=== PATIENT | female | born 1930 | race Caucasian/White ===

== ENCOUNTER 2018-05-05 09:58 | Emergency (ER) | payer MEDICARE, OTHER ==
[2018-05-05 10:13] VITALS: BMI 36.8
[2018-05-05] MEDS ORDERED: SODIUM CHLORIDE 1,000 ML IV SCH (11:00)
--- NOTE | 2018-05-05 11:11 | PDOC ---
History of Present Illness - General Chief Complaint: Weakness Stated Complaint: Weakness Time Seen by Provider: 05/05/18 10:09 - History of Present Illness Initial Comments: 05/05/18 11:18 The patient is an 88-year-old female with a past medical history significant for CHF on digoxin, IDDM, HTN, Afib (on Xarelto) and UTI (more than a year ago) presents to the emergency department accompanied with family members complaining of generalized weakness. The patient reports shes been having several days of weakness and fatigue associated with lower extremity edema. Per her son Dr. Payan, she had blood work which was significant for elevated creatinine and he discontinued Benicar, Lasix, digoxin and gave her 2L fluids with 1 amp bicarb. Per family members, the patient drank a lot of fluids yesterday; however, she isnt voiding frequently. The family states about a week prior she was having copious nonbloody, watery diarrhea that resolved 2 days ago. The patient did have a solid non bloody bowel movement earlier today. The patient reports she woke up at 2:00 and 4:00 am today, at which time her blood sugar was reported to be 142 which is low compared to the baseline of high 200s. Denies fever chills, dizziness, lightheadedness, abdominal pain, dysuria. Medication: Crestor, Insulin, Tradjenta, Toprol, Xarelto. Allergies: Codeine PCP: Dr. Jakub Payan. Past History - Past Medical History Allergies/Adverse Reactions: Allergies Allergy/AdvReac Type Severity Reaction Status Date / Time codeine AdvReac Severe Nausea Verified 05/05/18 10:08 Home Medications: Ambulatory Orders Digoxin [Lanoxin -] 0.125 mg PO DAILY 05/05/18 Furosemide [Lasix] 20 mg PO DAILY 05/05/18 Insulin Aspart [Novolog] 12 unit SQ PRN 05/05/18 Insulin Degludec [Tresiba] 60 unit SQ AM 05/05/18 Linagliptin [Tradjenta] 5 mg PO DAILY 05/05/18 Liraglutide [Victoza -] 1.8 mg SQ DAILY@0700 05/05/18 Metoprolol Succinate [Toprol Xl] 25 mg PO DAILY 05/05/18 Olmesartan Medoxomil [Benicar] 20 mg PO DAILY 05/05/18 Rivaroxaban [Xarelto] 15 mg PO DAILY 05/05/18 Rosuvastatin Calcium [Crestor] 10 mg PO DAILY 05/05/18 Anemia: No Asthma: No Cancer: No Cardiac Disorders: Yes (a-fib) CVA: No COPD: No CHF: No Dementia: No Diabetes: Yes GI Disorders: No Disorders: No HTN: Yes Hypercholesterolemia: No Liver Disease: No Seizures: No Thyroid Disease: No - Surgical History Abdominal Surgery: No Appendectomy: No Cardiac Surgery: No Cholecystectomy: Yes (1963) Lung Surgery: No Neurologic Surgery: No - Suicide/Smoking/Psychosocial Hx Smoking History: Never smoked Have you smoked in the past 12 months: No Information on smoking cessation initiated: No Hx Alcohol Use: No Drug/Substance Use Hx: No Substance Use Type: Alcohol Hx Substance Use Treatment: No Review of Systems - Review of Systems Comments:: 05/05/18 11:22 GENERAL/CONSTITUTIONAL: No fever or chills. +weakness and fatigue. HEAD, EYES, EARS, NOSE AND THROAT: No change in vision. No ear pain or discharge. No sore throat. GASTROINTESTINAL: Denies abdominal pain. No nausea, vomiting, diarrhea or constipation. GENITOURINARY: +decreased urinary frequency. No dysuria, or change in urination. CARDIOVASCULAR: No chest pain or shortness of breath. RESPIRATORY: No cough, wheezing, or hemoptysis. MUSCULOSKELETAL: No joint or muscle swelling or pain. No neck or back pain. SKIN: +Lower extremity edema. No rash NEUROLOGIC: Denies dizziness or lightheadedness. No headache, vertigo, loss of consciousness, or change in strength/sensation. ENDOCRINE: No increased thirst. No abnormal weight change. HEMATOLOGIC/LYMPHATIC: No anemia, easy bleeding, or history of blood clots. ALLERGIC/IMMUNOLOGIC: No hives or skin allergy. *Physical Exam - Vital Signs Last Vital Signs Temp Pulse Resp BP Pulse Ox 98.3 F 97 H 16 180/80 H 99 05/05/18 10:10 05/05/18 10:10 05/05/18 10:10 05/05/18 10:10 05/05/18 10:10 - Physical Exam Comments: 05/05/18 11:24 GENERAL: Awake, alert, and fully oriented, in no acute distress EYES: PERRLA, EOMI, sclera anicteric, conjunctiva clear ENT: +dry mucous membranes. oropharynx clear without exudates. NECK: Normal ROM, supple, no lymphadenopathy, JVD, or masses LUNGS: Breath sounds equal, clear to auscultation bilaterally. No wheezes, and no crackles HEART: irregularly irregular, normal rate, normal S1 and S2, no murmurs, rubs or gallops ABDOMEN: Soft, nontender. No guarding, no rebound. No masses EXTREMITIES: +1+ pitting edema,symmetric to the knees. Normal range of motion. No tenderness. BACK: No midline spinal tenderness in cervical/thoracic/lumbar region NEUROLOGICAL: Normal speech, cranial nerves intact, equal strength and sensation b/l SKIN: Warm, Dry, normal turgor, no rashes or lesions noted. Moderate Sedation - Procedure Monitoring Vital Signs: Procedure Monitoring Vital Signs Temperature 98.3 F 05/05/18 10:10 Pulse Rate 97 H 05/05/18 10:10 Respiratory Rate 16 05/05/18 10:10 Blood Pressure 180/80 H 05/05/18 10:10 O2 Sat by Pulse Oximetry (%) 99 05/05/18 10:10 Heart Score/ECG Review #1 05/05/18 11:47 Twelve-lead EKG was performed and reviewed by me. Atrial fibrillation, rate 85. Normal axis. No ST elevations. T wave inversions laterally and 1, aVL and V4 to V6. ED Treatment Course - LABORATORY CBC & Chemistry Diagram: 05/05/18 10:56 05/05/18 10:56 - RADIOLOGY Radiology Studies Ordered: Category Date Time Status CHEST X-RAY PORTABLE* [RAD] Stat Radiology 05/05/18 10:27 Taken Medical Decision Making - Medical Decision Making 05/05/18 11:51 88yo F hx CHF, HTN, AF on AC presents to the ED with generalized weakness and elevated creatinine on outpt labs. DDx includes infection vs metabolic vs ischemic vs toxic pathology. 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 Samaniego, recommends telemetry admission Dr. Samarneh also to see pt Dr. Payan has been updated Case discussed with Dr. Crawford, pt accepted for admission. Case discussed in detail with admitting physician including history, physical exam and ancillary studies. Admitting physician has assumed care for the patient, will follow all pending diagnostics and will complete the evaluation and treatment. *DC/Admit/Observation/Transfer Diagnosis at time of Disposition: HODAN (acute kidney injury), Dehydration, Generalized weakness Diagnosis at time of Disposition: (Ruled Out): Generalized weakness following poliomyelitis - Discharge Dispostion Condition at time of disposition: Stable Decision to Admit order: Yes Decision to Admit order Date/Time: Decision to Admit Order Category Date Time Status Decision to Admit to Hospital Routine Admission 05/05/18 10:58 Active - Referrals Referrals: Torres Payan MD [Primary Care Provider] - - Patient Instructions - Post Discharge Activity - Attestations Physician Attestion: 05/05/18 12:25 I, Dr. Austin Kidd MD, attest that this document has been prepared under my direction and personally reviewed by me in its entirety. I further attest, that it accurately reflects all work, treatment, procedures and medical decision -making performed by me.
[2018-05-05 11:12] LABS: BASO % 1.1 % (0-2.0); EOS % 1.4 % (0-4.5); HEMATOCRIT 32.7 % (32.4-45.2); HEMOGLOBIN 11.4 GM/dL (10.7-15.3); LYMPH % 20.9 % (8-40); MCH 28.6 pg (25.7-33.7); MCHC 34.9 g/dl (32.0-36.0); MEAN CELL VOLUME 81.9 fl (80-96); MEAN PLT VOLUME 9.3 fl (7.5-11.1); MONO % 6.1 % (3.8-10.2); NEUT % 70.5 % (42.8-82.8); PLATELET COUNT 183 K/MM3 (134-434); RBC 3.99 M/mm3 (3.60-5.2); RDW 17.2 % (11.6-15.6); WHITE BLOOD COUNT 8.9 K/mm3 (4.0-10.0)
--- NOTE | 2018-05-05 11:30 | EKG ---
Test Reason : Blood Pressure : / mmHG Vent. Rate : 088 BPM Atrial Rate : 069 BPM P-R Int : 000 ms QRS Dur : 088 ms QT Int : 352 ms P-R-T Axes : 000 -05 187 degrees QTc Int : 425 ms POOR DATA QUALITY, INTERPRETATION MAY BE ADVERSELY AFFECTED ATRIAL FIBRILLATION CANNOT RULE OUT SEPTAL INFARCT , AGE UNDETERMINED ABNORMAL ECG WHEN COMPARED WITH ECG OF 02-MAR-2016 10:13, NO SIGNIFICANT CHANGE WAS FOUND Confirmed by KAN ELDER MD ([id number]) on 05/05/2018 11:30:43 AM Referred By: Confirmed By:KAN ELDER MD
[2018-05-05 11:57] LABS: ALBUMIN 3.1 g/dl (3.4-5.0); ALK PHOS 86 U/L (45-117); ANION GAP 9 MMOL/L (8-16); BILIRUBIN,TOTAL 0.3 mg/dL (0.2-1); BLOOD UREA NITROGEN 68 mg/dL (7-18); CALCIUM 7.5 mg/dL (8.5-10.1); CHLORIDE 107 mmol/L (98-107); CO2 18 mmol/L (21-32); CREATININE 2.8 mg/dL (0.55-1.3); GLUCOSE,RANDOM 198 mg/dL (74-106); N-TERMINAL BNP 4885.4 pg/ml (5-450); POTASSIUM 4.6 mmol/L (3.5-5.1); SGOT/AST 14 U/L (15-37); SGPT/ALT 17 U/L (13-61); SODIUM 135 mmol/L (136-145); TOT PROT 7.7 g/dl (6.4-8.2)
[2018-05-05 11:58] LABS: URINE APPEARANCE SLCLOUDY; URINE BILIRUBIN NEGATIVE (<2.0 mg/dL); URINE COLOR STRAW; URINE GLUCOSE (UA) NEGATIVE (NEGATIVE); URINE KETONE NEGATIVE (NEGATIVE); URINE LEUK ESTERASE 2+ (NEGATIVE); URINE NITRITE NEGATIVE (NEGATIVE); URINE PROTEIN 1+ (NEGATIVE); URINE UROBILINOGEN NEGATIVE mg/dL (0.2-1.0)
[2018-05-05 12:25] VITALS: BP 170/75; PULSE 95; TEMP 98.5
[2018-05-05 12:30] LABS: EPI CELLS RARE /HPF (FEW); URINE HYALINE CAST 1 /lpf; URINE MUCUS RARE
[2018-05-05 13:28] LABS: MAGNESIUM 1.8 mg/dL (1.8-2.4)
--- NOTE | 2018-05-05 14:36 | CONSULT ---
Consult Consult Specialty:: Nephrology Reason for Consultation:: HODAN - History of Present Illness Chief Complaint: sent in for evaluation of elevated creatinine History of Present Illness: Pt is an 88 year old female with pmhx of CKD, CHF, HTN, , a-fib, dementia, DM, a -fib, and UTI who was sent in for evaluation of elevated creatinine. Pt had experienced severaly days of fatigue. She also had a few days of diarrhea. She was given about 2.5 liters of fluids at home. SHe was also given antibiotics. Pt was given an amp of bicarb at home as well. 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 Family sent her in to have bloodwork and renal ultrasound. She is now awake and alert. She denies shortness of breath. She does complains of some lower ext edema. SHe denies chest pain. SHe denies dysuria or hematuria. She was on benicar and lasix at home which have been held. - History Source History Provided By: Patient, Family Member, Medical Record - Past Medical History Cardio/Vascular: Yes: AFIB, CHF, HTN Renal/: Yes: Renal Inusuff Endocrine: Yes: Diabetes Mellitus - Alcohol/Substance Use Hx Alcohol Use: No - Smoking History Smoking history: Never smoked Have you smoked in the past 12 months: No Home Medications - Allergies Allergies/Adverse Reactions: Allergies Allergy/AdvReac Type Severity Reaction Status Date / Time codeine AdvReac Severe Nausea Verified 05/05/18 10:08 - Home Medications Home Medications: Ambulatory Orders Digoxin [Lanoxin -] 0.125 mg PO DAILY 05/05/18 Furosemide [Lasix] 20 mg PO DAILY 05/05/18 Insulin Aspart [Novolog] 12 unit SQ PRN 05/05/18 Insulin Degludec [Tresiba] 60 unit SQ AM 05/05/18 Linagliptin [Tradjenta] 5 mg PO DAILY 05/05/18 Liraglutide [Victoza -] 1.8 mg SQ DAILY@0700 05/05/18 Metoprolol Succinate [Toprol Xl] 25 mg PO DAILY 05/05/18 Olmesartan Medoxomil [Benicar] 20 mg PO DAILY 05/05/18 Rivaroxaban [Xarelto] 15 mg PO DAILY 05/05/18 Rosuvastatin Calcium [Crestor] 10 mg PO DAILY 05/05/18 Family Disease History - Family Disease History Family History: Denies Review of Systems - Review of Systems Constitutional: reports: Malaise. denies: Chills, Fever Eyes: reports: No Symptoms HENT: reports: No Symptoms Neck: reports: No Symptoms Cardiovascular: reports: No Symptoms Respiratory: reports: No Symptoms Gastrointestinal: reports: Diarrhea Genitourinary: reports: No Symptoms Neurological: reports: No Symptoms Hematology/Lymphatic: reports: No Symptoms Psychiatric: reports: No Symptoms Physical Exam Vital Signs: Vital Signs Temperature 98.5 F 05/05/18 12:24 Pulse Rate 95 H 05/05/18 12:24 Respiratory Rate 20 05/05/18 12:24 Blood Pressure 170/75 05/05/18 12:24 O2 Sat by Pulse Oximetry (%) 98 05/05/18 12:24 Constitutional: Yes: Calm Eyes: Yes: Conjunctiva Clear HENT: Yes: Atraumatic Neck: Yes: Supple Cardiovascular: Yes: S1, S2 Respiratory: Yes: Other (base rhonchi) Gastrointestinal: Yes: Soft Renal/: Yes: WNL Musculoskeletal: Yes: WNL Edema: Yes Edema: LLE: 1+, RLE: 1+ Neurological: Yes: Oriented Psychiatric: Yes: Oriented Labs: CBC, BMP 05/05/18 10:56 05/05/18 10:56 Laboratory Tests 05/05/18 05/05/18 10:56 10:56 WBC 8.9 Hgb 11.4 Sodium 135 L Potassium 4.6 Chloride 107 Carbon Dioxide 18 L BUN 68 H Creatinine 2.8 H Random Glucose 198 H B-Natriuretic Peptide 4885.4 H Digoxin 0.78 L Imaging - Results Chest X-ray: Report Reviewed Ultrasound: Report Reviewed Problem List - Problems (1) Diarrhea Code(s): R19.7 - DIARRHEA, UNSPECIFIED (2) HODAN (acute kidney injury) Code(s): N17.9 - ACUTE KIDNEY FAILURE, UNSPECIFIED (3) Dehydration Code(s): E86.0 - DEHYDRATION (4) Generalized weakness Code(s): R53.1 - WEAKNESS (5) Diabetes Code(s): E11.9 - TYPE 2 DIABETES MELLITUS WITHOUT COMPLICATIONS Assessment/Plan Current Medications Generic Name Dose Route Start Last Admin Trade Name Freq PRN Reason Stop Dose Admin Sodium Chloride 1,000 mls @ 75 mls/hr 05/05/18 11:00 05/05/18 11:00 Normal Saline - IV 75 mls/hr ASDIR KAHLIL Administration Insulin Aspart 1 vial 05/05/18 16:30 Novolog Vial Sliding Scale - SQ ACHS KAHLIL Protocol Insulin Detemir 15 units 05/06/18 07:00 Levemir Vial SQ AM KAHLIL Insulin Detemir 7 units 05/05/18 22:00 Levemir Vial SQ HS KAHLIL Impression 1. HODAN 2. CKD 3. CHF 4. a-fib 5. diarrhea - resolved 6. a-fib 7. DM 8. HTN 9. mild dementia 10. hyperlipiemia Plan - would d/c fluids - renal ultrasound reviewed - hold benicar for now - will need to resume lasix of edema worsens or she developed shortness of breath - discussed care with Dr Payan and he would like to have follow up done as outpt - they will repeat labs to evaluate renal function - diarrhea has resolved and pt is tolerating diet at this time
[2018-05-05] MEDS ORDERED: INSULIN SLIDING SCALE (NOVOLOG) 1 VIAL SQ SCH (16:30)
[2018-05-05] MEDS ORDERED: INSULIN (LEVEMIR) 100 UNITS/ML UNITS SQ SCH (22:00)
[2018-05-06] MEDS ORDERED: INSULIN (LEVEMIR) 100 UNITS/ML UNITS SQ SCH (07:00)
--- NOTE | 2018-05-06 22:07 | EKG ---
Test Reason : Blood Pressure : / mmHG Vent. Rate : 085 BPM Atrial Rate : 061 BPM P-R Int : 000 ms QRS Dur : 094 ms QT Int : 366 ms P-R-T Axes : 000 -01 189 degrees QTc Int : 435 ms ATRIAL FIBRILLATION ABNORMAL ECG WHEN COMPARED WITH ECG OF 05-MAY-2018 10:14, T WAVE VARIATION Confirmed by MICHELLE RODRÍGUEZ MD ([id number]) on 05/06/2018 10:07:43 PM Referred By: Confirmed By:MICHELLE RODRÍGUEZ MD
== END 2018-05-05 15:01 | disposition home or self-care (01) ==
LOC: JER 09:58 → JERBED 10:58 → UNDOADMIN 10:58 → JER 15:01
DX: E86.0 Dehydration (principal); E53.1 Pyridoxine deficiency; R19.7 Diarrhea, unspecified; I11.0 Hypertensive heart disease with heart failure; I50.9 Heart failure, unspecified; E11.9 Type 2 diabetes mellitus without complications; Z79.4 Long term (current) use of insulin; N17.9 Acute kidney failure, unspecified; I48.91 Unspecified atrial fibrillation; Z79.01 Long term (current) use of anticoagulants; F03.90 Unspecified dementia, unspecified severity, without behavioral disturbance, psychotic disturbance, mood disturbance, and anxiety
CPT/HCPCS: 36415; 71045-TC-FY; 76775-TC; 76856-TC; 80053; 80162; 81003; 81015; 83735; 83880; 84484; 85025; 87086; 87186; 93005; 93010; 99282-25; J7030

== ENCOUNTER 2018-05-08 08:52 | Inpatient (IN) | payer MEDICARE, OTHER ==
[2018-05-08 09:01] VITALS: BMI 30.4
--- NOTE | 2018-05-08 09:30 | CON.CARD ---
Consult Consult Specialty:: Cardiology Referred by:: Dr. Torres Payan Reason for Consultation:: Management of AF and volume status - History of Present Illness Chief Complaint: Fatigue History of Present Illness: 88F chronic AF, diastolic CHF, HTN , DM. Had about one week of diarrhea last week resulting in pre-renal azotemia. ARB was stopped, she was encouraged to hydrate at home. Now returns to ER with generalized fatigue, low grade fever. Denies cough, fever, chills. Diarrhea subsided. No chest pain or palpitations. Family (physicians) report episodes of rapid AF over weekend. - History Source History Provided By: Patient, Family Member, Medical Record - Past Medical History Cardio/Vascular: Yes: AFIB, CHF, HTN Renal/: Yes: Renal Inusuff Endocrine: Yes: Diabetes Mellitus - Alcohol/Substance Use Hx Alcohol Use: No - Smoking History Smoking history: Never smoked Have you smoked in the past 12 months: No - Social History Usual Living Arrangement: With Child History of Recent Travel: No Home Medications - Allergies Allergies/Adverse Reactions: Allergies Allergy/AdvReac Type Severity Reaction Status Date / Time codeine AdvReac Severe Nausea Verified 05/05/18 10:08 - Home Medications Home Medications: Ambulatory Orders Digoxin [Lanoxin -] 0.125 mg PO DAILY 05/05/18 Furosemide [Lasix] 20 mg PO DAILY 05/05/18 Insulin Aspart [Novolog] 12 unit SQ PRN 05/05/18 Insulin Degludec [Tresiba] 60 unit SQ AM 05/05/18 Linagliptin [Tradjenta] 5 mg PO DAILY 05/05/18 Liraglutide [Victoza -] 1.8 mg SQ DAILY@0700 05/05/18 Metoprolol Succinate [Toprol Xl] 25 mg PO DAILY 05/05/18 Olmesartan Medoxomil [Benicar] 20 mg PO DAILY 05/05/18 Rivaroxaban [Xarelto] 15 mg PO DAILY 05/05/18 Rosuvastatin Calcium [Crestor] 10 mg PO DAILY 05/05/18 Family Disease History - Family Disease History Family History: Unremarkable (not pertinent to this presentation) Review of Systems - Review of Systems Constitutional: reports: Malaise, Weakness HENT: denies: No Symptoms, Difficult Swallowing, Ear Discharge, Ear Pain, Epistaxis, Gingival Bleeding, Hearing Loss, Mouth Swelling, Nasal Congestion, Ocular Prosthesis, Throat Pain, Toothache, Ringing in Ears, Other Neck: denies: No Symptoms, Decreased ROM, Lumps, Pain on Movement, Stiffness, Swollen Glands, Tenderness, Other Cardiovascular: denies: No Symptoms, Chest Pain, Edema, Palpitations, Shortness of Breath, Other Respiratory: denies: No Symptoms, Cough, Exercise Intolerance, Hemoptysis, Orthopnea, PND, Snoring, SOB, SOB on Exertion, Wheezing, Other Gastrointestinal: denies: No Symptoms, Abdominal Pain, Bloating, Constipation, Diarrhea, Dysphagia, Indigestion, Melena, Nausea, Rectal Bleeding, Vomiting, Vomiting Blood, Other Genitourinary: denies: No Symptoms, Burning, Discharge, Dysuria, Flank Pain, Frequency, Hematuria, Incontinence, Lesions, Menses, Pain, Testicular Mass, Testicular Pain, Testicular Swelling, Urgency, Vaginal Bleeding, Other Breasts: denies: No Symptoms Reported, See HPI, Breast Implants, Discharge from Nipple, Lumps, Pain, Skin Changes, Other Musculoskeletal: denies: No Symptoms, Back Pain, Crepitus, Decreased ROM, Extremity Pain, Joint Pain, Joint Swelling, Muscle Pain, Muscle Cramps, Muscle Weakness, Other Integumentary: denies: No Symptoms, Blister, Bruising, Change in Color, Eczema, Erythema, Incision, Lesions, Lump, Pallor, Pruritis, Rash, Wound, Other Neurological: denies: No Symptoms, Change in LOC, Change in Speech, Confusion, Dizziness, Headache, Incoordination, Numbness, Parasthesia, Pre-Existing Deficit , Seizure, Syncope, Tremors, Unsteady Gait, Weakness, Other Endocrine: denies: No Symptoms, Excessive Sweating, Flushing, Increased Hunger, Increased Thirst, Intolerance to Cold, Intolerance to Heat, Unexplained Weight Gain, Unexplained Weight Loss, Other Hematology/Lymphatic: denies: No Symptoms, Easily Bruised, Excessive Bleeding, Swollen Glands, Other - Risk Factors Known Risk Factors: Yes: Diabetes Mellitus Vital Signs: Vital Signs Temperature 98.8 F 05/08/18 08:58 Pulse Rate 95 H 05/08/18 08:58 Respiratory Rate 16 05/08/18 08:58 Blood Pressure 139/55 L 05/08/18 08:58 O2 Sat by Pulse Oximetry (%) 93 L 05/08/18 08:58 Constitutional: Yes: No Distress Respiratory: Yes: Other (rales) Gastrointestinal: Yes: Soft Cardiovascular: Yes: Pulse Irregular JVD: No Heart Sounds: Yes: S1, S2 (irregular) Edema: Yes Edema: LLE: 1+, RLE: 1+ Neurological: Yes: Alert, Oriented ...Motor Strength: WNL - Other Data Echo: Pending Imaging - Results Chest X-ray: Pending EKG: Image Reviewed Problem List - Problems (1) Chronic diastolic CHF (congestive heart failure) Code(s): I50.32 - CHRONIC DIASTOLIC (CONGESTIVE) HEART FAILURE (2) Atrial fibrillation Code(s): I48.91 - UNSPECIFIED ATRIAL FIBRILLATION Qualifiers: Atrial fibrillation type: permanent Qualified Code(s): I48.2 - Chronic atrial fibrillation (3) Diabetes Code(s): E11.9 - TYPE 2 DIABETES MELLITUS WITHOUT COMPLICATIONS Qualifiers: Diabetes mellitus type: type 2 Diabetes mellitus complication status: without complication (4) Pneumonia Code(s): J18.9 - PNEUMONIA, UNSPECIFIED ORGANISM Qualifiers: Pneumonia type: due to unspecified organism Laterality: right Lung location: lower lobe of lung Qualified Code(s): J18.1 - Lobar pneumonia, unspecified organism (5) Acute renal failure Code(s): N17.9 - ACUTE KIDNEY FAILURE, UNSPECIFIED Qualifiers: Acute renal failure type: unspecified Qualified Code(s): N17.9 - Acute kidney failure, unspecified Assessment/Plan IMP: Recent diarrheal illness Acute on chronic renal failure Chronic diastolic CHF Permanent AF with rapid ventricular response. DM, type 2 REC: 1. Hold ARB, stat labs. 2. Renal consult 3. CXR 4. Increase Toprol to 25mg BID 5. Xarelto adjusted for renal fx 6. Hold digoxin for now. 7. Telemetry 8. Endocrine Consult Will follow
[2018-05-08 10:27] LABS: BASO % 0.4 % (0-2.0); EOS % 0.1 % (0-4.5); HEMATOCRIT 31.7 % (32.4-45.2); HEMOGLOBIN 10.6 GM/dL (10.7-15.3); LYMPH % 10.4 % (8-40); MCH 27.6 pg (25.7-33.7); MCHC 33.5 g/dl (32.0-36.0); MEAN CELL VOLUME 82.3 fl (80-96); MEAN PLT VOLUME 9.4 fl (7.5-11.1); NEUT % 83.1 % (42.8-82.8); PLATELET COUNT 181 K/MM3 (134-434); RBC 3.86 M/mm3 (3.60-5.2); RDW 17.4 % (11.6-15.6); WHITE BLOOD COUNT 15.2 K/mm3 (4.0-10.0)
[2018-05-08] MEDS: metoPROLOL SUCCINATE 25 MG TAB.SR.24H (FP) PO SCH ×2 (10:44→21:00)
[2018-05-08 10:57] LABS: ALBUMIN 2.9 g/dl (3.4-5.0); ALK PHOS 81 U/L (45-117); ANION GAP 8 MMOL/L (8-16); BLOOD UREA NITROGEN 42 mg/dL (7-18); CALCIUM 7.6 mg/dL (8.5-10.1); CHLORIDE 105 mmol/L (98-107); CO2 22 mmol/L (21-32); GLUCOSE,RANDOM 242 mg/dL (74-106); MAGNESIUM 1.5 mg/dL (1.8-2.4); SGOT/AST 15 U/L (15-37); SGPT/ALT 26 U/L (13-61); SODIUM 135 mmol/L (136-145); TOT PROT 7.7 g/dl (6.4-8.2)
[2018-05-08] MEDS ORDERED: CEFTRIAXONE 1,000 MG in DEXTROSE 5%-WATER - 50 ML IVPB ONE (11:22)
--- NOTE | 2018-05-08 11:25 | PDOC ---
History of Present Illness - General Chief Complaint: Palpitations Stated Complaint: WEAKNESS - History of Present Illness Initial Comments: 05/08/18 11:25 88-year-old female history of A. fib CHF hypertension was here today with complaints of feeling weak. Patient was seen 1 week ago or diarrhea. At that time was found to be in acute renal failure therefore her ARB was discontinued her Lasix was decreased as well. 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 No sick contacts no nausea no vomiting is no longer having diarrhea. Per family patient has been eating and drinking well over the last few days denies any current chest pain patient has been given intermittent antibiotics at home by family members was given a dose of cephalosporin one week ago received 2 doses total. Patient was sent today by the patient's glass handler due to concerns that over the weekend she was having intermittent palpitations and racing heartbeat and felt that she may be in uncontrolled A. fib with RVR Past History - Past Medical History Allergies/Adverse Reactions: Allergies Allergy/AdvReac Type Severity Reaction Status Date / Time codeine AdvReac Severe Nausea Verified 05/05/18 10:08 Home Medications: Ambulatory Orders Digoxin [Lanoxin -] 0.125 mg PO DAILY 05/05/18 Furosemide [Lasix] 20 mg PO DAILY 05/05/18 Insulin Aspart [Novolog] 12 unit SQ PRN 05/05/18 Insulin Degludec [Tresiba] 60 unit SQ AM 05/05/18 Linagliptin [Tradjenta] 5 mg PO DAILY 05/05/18 Liraglutide [Victoza -] 1.8 mg SQ DAILY@0700 05/05/18 Metoprolol Succinate [Toprol Xl] 25 mg PO DAILY 05/05/18 Olmesartan Medoxomil [Benicar] 20 mg PO DAILY 05/05/18 Rivaroxaban [Xarelto] 15 mg PO DAILY 05/05/18 Rosuvastatin Calcium [Crestor] 10 mg PO DAILY 05/05/18 Anemia: No Asthma: No Cancer: No Cardiac Disorders: Yes (a-fib) CVA: No COPD: No CHF: No Dementia: No Diabetes: Yes GI Disorders: No Disorders: No HTN: Yes Hypercholesterolemia: No Liver Disease: No Seizures: No Thyroid Disease: No - Surgical History Abdominal Surgery: No Appendectomy: No Cardiac Surgery: No Cholecystectomy: Yes (1962) Lung Surgery: No Neurologic Surgery: No - Immunization History Immunization Up to Date: No - Suicide/Smoking/Psychosocial Hx Smoking History: Never smoked Have you smoked in the past 12 months: No Information on smoking cessation initiated: No Hx Alcohol Use: No Drug/Substance Use Hx: No Substance Use Type: Alcohol Hx Substance Use Treatment: No Review of Systems - Review of Systems Constitutional: Yes: Fever. No: Chills, Diaphoresis HEENTM: No: Eye Pain Respiratory: Yes: Shortness of Breath. No: Cough Cardiac (ROS): No: Chest Pain, Edema, Irregular Heart Rate : No: Burning, Dysuria, Discharge Musculoskeletal: No: Back Pain, Joint Pain Integumentary: No: Bruising, Change in Color Hematologic/Lymphatic: Yes: Other (generalized weakness) All Other Systems: Reviewed and Negative *Physical Exam - Vital Signs Last Vital Signs Temp Pulse Resp BP Pulse Ox 98.8 F 95 H 16 139/55 L 93 L 05/08/18 08:58 05/08/18 08:58 05/08/18 08:58 05/08/18 08:58 05/08/18 08:58 - Physical Exam Comments: 05/08/18 11:29 awake alert lungs with crackles bilateral bases. no focal wheezes. heart rrr no m rg abd soft nt nd. ext wwp mild pitting edema. bilaterally. 2 + dp/ pt. nuero alert oriented x 3. . 05/08/18 11:33 Moderate Sedation - Procedure Monitoring Vital Signs: Procedure Monitoring Vital Signs Temperature 98.8 F 05/08/18 08:58 Pulse Rate 95 H 05/08/18 08:58 Respiratory Rate 16 05/08/18 08:58 Blood Pressure 139/55 L 05/08/18 08:58 O2 Sat by Pulse Oximetry (%) 93 L 05/08/18 08:58 ED Treatment Course - LABORATORY CBC & Chemistry Diagram: 05/08/18 10:04 05/08/18 10:04 - ADDITIONAL ORDERS Additional order review: Laboratory Results 05/08/18 10:04 Sodium 135 L Potassium 5.0 Chloride 105 Carbon Dioxide 22 Anion Gap 8 BUN 42 H Creatinine 2.0 H Creat Clearance w eGFR 23.46 Random Glucose 242 H Calcium 7.6 L Magnesium 1.5 L Total Bilirubin 1.0 AST 15 ALT 26 Alkaline Phosphatase 81 Troponin I 0.02 Total Protein 7.7 Albumin 2.9 L 05/08/18 10:04 RBC 3.86 MCV 82.3 MCHC 33.5 RDW 17.4 H MPV 9.4 Neutrophils % 83.1 H Lymphocytes % 10.4 D Monocytes % 6.0 Eosinophils % 0.1 D Basophils % 0.4 Medical Decision Making - Medical Decision Making 05/08/18 11:33 88-year-old female history of hypertension diabetes A. fib CHF here today complaining of shortness of breath generalized fatigue. Was recently seen for diarrhea and secondary found to have renal failure on exam today the patient has crackles at bilateral lung bases but is otherwise comfortable her O2 sats are in the high 80s low 90s on room air which improves on minimal oxygen extremity exam is noted for mild edema Differential diagnosis includes CHF exacerbation, worsening renal function, anemia, AL, infection such as pneumonia or other UTI, electrolyte of normality, infectious workup is considered including flu plan chest x-ray EKG labs flu swab urinalysis will likely require admission Patient's creatinine is improved today at to her x-ray shows bilateral pulmonary edema concerns for an infiltrate the right base. We'll treat with antibiotics ceftriaxone and azithromycin will also reinstitute patient's Lasix she was previously getting 20 mg by mouth. Patient will be admitted to Dr. Crawford after discussion with Dr. Payan, is requesting consult to Dr. Mcgee and Dr. Bahena in addition *DC/Admit/Observation/Transfer Diagnosis at time of Disposition: CHF (congestive heart failure) Pneumonia Qualifiers: Pneumonia type: due to unspecified organism Laterality: right Lung location: lower lobe of lung Qualified Code(s): J18.1 - Lobar pneumonia, unspecified organism - Discharge Dispostion Condition at time of disposition: Stable Decision to Admit order: Yes - Referrals Referrals: Torres Payan MD [Primary Care Provider] - - Patient Instructions - Post Discharge Activity
--- NOTE | 2018-05-08 11:37 | PN ---
Progress Note (short form) - Note Progress Note: ID consult dictated IMP?RECCD leukocytosis cannot r/o CPA vs CHF rapid afib recent dehydration sedcondary to diarrhea (resolved over a week ago0 rocphin aithromax influenza screen legionella urianry antigen ua throat culture nystatin for thrush d/w dr valencia d/w family at bedside Problem List - Problems (1) Leukocytosis Code(s): D72.829 - ELEVATED WHITE BLOOD CELL COUNT, UNSPECIFIED (2) Pneumonia Code(s): J18.9 - PNEUMONIA, UNSPECIFIED ORGANISM Qualifiers: Pneumonia type: due to unspecified organism Laterality: right Lung location: lower lobe of lung Qualified Code(s): J18.1 - Lobar pneumonia, unspecified organism (3) CHF (congestive heart failure) Code(s): I50.9 - HEART FAILURE, UNSPECIFIED
[2018-05-08] MEDS ORDERED: MAGNESIUM OXIDE 400 MG TABLET (FP) ONE (12:25)
[2018-05-08] MEDS ORDERED: FUROSEMIDE 40 MG/4 ML INJECTABLE VIAL ONE (12:25)
[2018-05-08] MEDS ORDERED: CEFTRIAXONE 1 GM/50 ML BAG ONE (12:25)
[2018-05-08] MEDS: FUROSEMIDE 40 MG/4 ML INJECTABLE VIAL IVPUSH SCH (12:43)
[2018-05-08] MEDS: MAGNESIUM OXIDE 400 MG TABLET (FP) PO SCH ×2 (12:44→21:00)
--- NOTE | 2018-05-08 13:39 | CON.PULM ---
Consult Consult Specialty:: PULMONARY Referred by:: Dr. Samaniego Reason for Consultation:: r/o pneumonia - History of Present Illness Chief Complaint: generalized weakness History of Present Illness: 88yo female with h/o HTN, DM, atrial fibrillation, CKD, LV Diastolic Dysfunction who was recently seen in the ER with generalized weakness and diarrhea back with worsening generalized weakness and chills. Denies any chest pain or palpitations. No fevers but with chills. She had held her lasix for the past 4 days per instructions. Noted to have episodes of rapid atrial fibrillation. No sick contacts or recent travel. - History Source History Provided By: Patient, Family Member, Medical Record Limitations to Obtaining History: No Limitations - Past Medical History Cardio/Vascular: Yes: AFIB, CHF, HTN Renal/: Yes: Renal Inusuff Endocrine: Yes: Diabetes Mellitus - Alcohol/Substance Use Hx Alcohol Use: No - Smoking History Smoking history: Never smoked Have you smoked in the past 12 months: No - Social History Usual Living Arrangement: With Child History of Recent Travel: No Home Medications - Allergies Allergies/Adverse Reactions: Allergies Allergy/AdvReac Type Severity Reaction Status Date / Time codeine AdvReac Severe Nausea Verified 05/05/18 10:08 - Home Medications Home Medications: Ambulatory Orders Digoxin [Lanoxin -] 0.125 mg PO DAILY 05/05/18 Furosemide [Lasix] 20 mg PO DAILY 05/05/18 Insulin Aspart [Novolog] 12 unit SQ PRN 05/05/18 Insulin Degludec [Tresiba] 60 unit SQ AM 05/05/18 Linagliptin [Tradjenta] 5 mg PO DAILY 05/05/18 Liraglutide [Victoza -] 1.8 mg SQ DAILY@0700 05/05/18 Metoprolol Succinate [Toprol Xl] 25 mg PO DAILY 05/05/18 Olmesartan Medoxomil [Benicar] 20 mg PO DAILY 05/05/18 Rivaroxaban [Xarelto] 15 mg PO DAILY 05/05/18 Rosuvastatin Calcium [Crestor] 10 mg PO DAILY 05/05/18 Review of Systems - Review of Systems Constitutional: reports: Chills, Malaise, Weakness Eyes: denies: Recent Change in Vision HENT: denies: Throat Pain Neck: denies: Stiffness, Tenderness Cardiovascular: reports: Edema. denies: Chest Pain, Palpitations, Shortness of Breath Respiratory: reports: Cough. denies: Hemoptysis, SOB Gastrointestinal: reports: Diarrhea. denies: Abdominal Pain, Nausea Genitourinary: denies: Dysuria, Hematuria Neurological: denies: Dizziness, Headache Physical Exam Vital Sings: Vital Signs Temperature 98.8 F 05/08/18 08:58 Pulse Rate 95 H 05/08/18 08:58 Respiratory Rate 16 05/08/18 08:58 Blood Pressure 139/55 L 05/08/18 08:58 O2 Sat by Pulse Oximetry (%) 95 05/08/18 09:15 Constitutional: Yes: Calm Eyes: Yes: Conjunctiva Clear, EOM Intact HENT: Yes: Atraumatic, Normocephalic Neck: Yes: Supple, Trachea Midline Cardiovascular: Yes: Pulse Irregular Respiratory: Yes: Rales (R>L) ...Clubbing: No Gastrointestinal: Yes: Normal Bowel Sounds, Soft. No: Tenderness Edema: Yes Neurological: Yes: Alert, Oriented Labs: CBC, BMP 05/08/18 10:04 05/08/18 10:04 Imaging - Results Chest X-ray: Report Reviewed, Image Reviewed (pulmonary vascular congestion - r/ o RLL early infiltrate) Problem List - Problems (1) Atrial fibrillation Code(s): I48.91 - UNSPECIFIED ATRIAL FIBRILLATION Qualifiers: Atrial fibrillation type: permanent Qualified Code(s): I48.2 - Chronic atrial fibrillation (2) Chronic diastolic CHF (congestive heart failure) Code(s): I50.32 - CHRONIC DIASTOLIC (CONGESTIVE) HEART FAILURE (3) Diabetes Code(s): E11.9 - TYPE 2 DIABETES MELLITUS WITHOUT COMPLICATIONS Qualifiers: Diabetes mellitus type: type 2 Diabetes mellitus complication status: without complication Assessment/Plan Atrial Fibrillation with RVR Acute on Chronic Diastolic Heart Failure r/o Pneumonia CKD HTN DM - agree with empiric antibiotics - f/u cultures - lasix - monitor urine output, creatinine - O2 to keep SpO2 >90% - monitor CXR with diuresis - rate control - continue anticoagulation Thank you for this consult Tyree Hernandez MD
[2018-05-08] MEDS ORDERED: AZITHROMYCIN IVPB 500 MG/250 ML BAG IVPB ONE ×2 (14:45→14:48)
[2018-05-08 15:00] LABS: URINE APPEARANCE CLEAR; URINE BILIRUBIN NEGATIVE (<2.0 mg/dL); URINE COLOR LTYELLOW; URINE GLUCOSE (UA) 2+ (NEGATIVE); URINE KETONE NEGATIVE (NEGATIVE); URINE LEUK ESTERASE NEGATIVE (NEGATIVE); URINE NITRITE NEGATIVE (NEGATIVE); URINE PROTEIN 2+ (NEGATIVE); URINE UROBILINOGEN NEGATIVE mg/dL (0.2-1.0)
[2018-05-08 15:10] LABS: EPI CELLS RARE /HPF (FEW); URINE BACTERIA RARE /hpf (NONE SEEN)
--- NOTE | 2018-05-08 15:12 | CONSULT ---
Consult Consult Specialty:: Nephrology Reason for Consultation:: HODAN and overload - History of Present Illness Chief Complaint: chills and weakness History of Present Illness: Pt is an 88 year old female who presents with weakness. Please see my H and P from Tuesday. She was evaluated for HODAN which is improving. She has been off of her lasix. She complains of lower ext edema. She did have episodes of rapid a- fib. - History Source History Provided By: Patient, Family Member - Past Medical History Cardio/Vascular: Yes: AFIB, CHF, HTN Renal/: Yes: Renal Inusuff Endocrine: Yes: Diabetes Mellitus - Alcohol/Substance Use Hx Alcohol Use: No - Smoking History Smoking history: Never smoked Have you smoked in the past 12 months: No - Social History Usual Living Arrangement: With Child History of Recent Travel: No Home Medications - Allergies Allergies/Adverse Reactions: Allergies Allergy/AdvReac Type Severity Reaction Status Date / Time codeine AdvReac Severe Nausea Verified 05/05/18 10:08 - Home Medications Home Medications: Ambulatory Orders Digoxin [Lanoxin -] 0.125 mg PO DAILY 05/05/18 Furosemide [Lasix] 20 mg PO DAILY 05/05/18 Insulin Aspart [Novolog] 12 unit SQ PRN 05/05/18 Insulin Degludec [Tresiba] 60 unit SQ AM 05/05/18 Linagliptin [Tradjenta] 5 mg PO DAILY 05/05/18 Liraglutide [Victoza -] 1.8 mg SQ DAILY@0700 05/05/18 Metoprolol Succinate [Toprol Xl] 25 mg PO DAILY 05/05/18 Olmesartan Medoxomil [Benicar] 20 mg PO DAILY 05/05/18 Rivaroxaban [Xarelto] 15 mg PO DAILY 05/05/18 Rosuvastatin Calcium [Crestor] 10 mg PO DAILY 05/05/18 Family Disease History - Family Disease History Family History: Denies Review of Systems - Review of Systems Constitutional: reports: Chills, Malaise Eyes: reports: No Symptoms HENT: reports: No Symptoms Neck: reports: No Symptoms Cardiovascular: reports: Edema Respiratory: reports: SOB on Exertion Gastrointestinal: reports: No Symptoms Genitourinary: reports: No Symptoms Musculoskeletal: reports: No Symptoms Integumentary: reports: No Symptoms Neurological: reports: No Symptoms Endocrine: reports: No Symptoms Hematology/Lymphatic: reports: No Symptoms Psychiatric: reports: No Symptoms Physical Exam Vital Signs: Vital Signs Temperature 98.8 F 05/08/18 08:58 Pulse Rate 95 H 05/08/18 08:58 Respiratory Rate 16 05/08/18 08:58 Blood Pressure 139/55 L 05/08/18 08:58 O2 Sat by Pulse Oximetry (%) 95 05/08/18 09:15 Constitutional: Yes: Calm Eyes: Yes: Conjunctiva Clear HENT: Yes: Atraumatic Cardiovascular: Yes: S1, S2 Respiratory: Yes: On Nasal O2, Rhonchi Gastrointestinal: Yes: Soft Musculoskeletal: Yes: WNL Edema: Yes Edema: LLE: 2+, RLE: 2+ Neurological: Yes: Oriented Psychiatric: Yes: Oriented Labs: CBC, BMP 05/08/18 10:04 05/08/18 10:04 Microbiology Laboratory Tests 05/05/18 05/05/18 05/08/18 10:56 10:56 10:04 Hgb 11.4 10.6 L Sodium 135 L Potassium Chloride Carbon Dioxide BUN 68 H Creatinine 2.8 H Influenza A (Rapid) Influenza B (Rapid) Group A Strep Rapid 05/08/18 05/08/18 05/08/18 10:04 10:10 11:26 Hgb Sodium 135 L Potassium 5.0 Chloride 105 Carbon Dioxide 22 BUN 42 H Creatinine 2.0 H Influenza A (Rapid) Negative Influenza B (Rapid) Negative Group A Strep Rapid Negative Imaging - Results Chest X-ray: Report Reviewed Problem List - Problems (1) CHF (congestive heart failure) Code(s): I50.9 - HEART FAILURE, UNSPECIFIED (2) HODAN (acute kidney injury) Code(s): N17.9 - ACUTE KIDNEY FAILURE, UNSPECIFIED (3) Atrial fibrillation Code(s): I48.91 - UNSPECIFIED ATRIAL FIBRILLATION Qualifiers: Atrial fibrillation type: permanent Qualified Code(s): I48.2 - Chronic atrial fibrillation Assessment/Plan Current Medications Generic Name Dose Route Start Last Admin Trade Name Freq PRN Reason Stop Dose Admin Furosemide 40 mg 05/08/18 11:45 05/08/18 12:43 Lasix Injection - IVPUSH 40 mg DAILY KA[facility]IL Administration Azithromycin 500 mg in 250 mls @ 250 mls/hr 05/08/18 14:45 05/08/18 14:57 Zithromax 500mg Ivpb (Pre-Docked) IVPB 05/08/18 15:44 250 mls/hr ONCE ONE Administration Ceftriaxone Sodium 1 gm/ 50 mls @ 100 mls/hr 05/09/18 10:00 Dextrose IVPB DAILY [facility] Protocol Magnesium Oxide 400 mg 05/08/18 11:45 05/08/18 12:44 Mag-Ox - PO 400 mg BID [facility] Administration Metoprolol Succinate 25 mg 05/08/18 10:00 05/08/18 10:44 Toprol Xl - PO 25 mg BID [facility] Administration Nystatin 500,000 units 05/08/18 18:00 Nystatin Oral Suspension - PO Q6HPO [facility] Rivaroxaban 15 mg 05/09/18 18:00 Xarelto PO DAILY@1800 [facility] Impression 1. HODAN 2. CKD 3. CHF 4. a-fib 5. diarrhea - resolved 6. a-fib 7. DM 8. HTN 9. mild dementia 10. hyperlipiemia 11. fluid overload Plan - agree with lasix - repeat labs in am - repeat bmp in am - monitor lytes - follow cultures - admit to tele Dr Mcgee
[2018-05-08] MEDS ORDERED: ONDANSETRON 4 MG/2 ML VIAL IVPUSH ONE (16:42)
[2018-05-08] MEDS ORDERED: ONDANSETRON 4 MG/2 ML VIAL IVPUSH PRN (16:42)
[2018-05-08] MEDS ORDERED: PANTOPRAZOLE 40 MG TABLET (FP) ONE (16:59)
[2018-05-08] MEDS ORDERED: ONDANSETRON 4 MG/2 ML VIAL ONE (17:00)
[2018-05-08] MEDS: PANTOPRAZOLE 40 MG TABLET (FP) PO SCH (17:05)
[2018-05-08] MEDS ORDERED: INSULIN (NOVOLOG) ASPART 100 UNITS/ML 10ML VIAL SQ ONE (17:45)
[2018-05-08] MEDS ORDERED: INSULIN (NOVOLOG) ASPART 100 UNITS/ML 10ML VIAL ONE (17:47)
[2018-05-08] MEDS: INSULIN SLIDING SCALE (NOVOLOG) 1 VIAL SQ SCH ×2 (17:54→21:14)
[2018-05-08] MEDS ORDERED: RIVAROXABAN 20 MG TABLET PO SCH (18:00)
[2018-05-08] MEDS: NYSTATIN 500,000 UNITS/5 ML SUSPENSION PO SCH ×2 (19:02→23:53)
--- NOTE | 2018-05-08 19:12 | CONS ---
DATE OF CONSULTATION: 05/08/2018 DATE OF DICTATION: 05/08/2018 INFECTIOUS DISEASE CONSULTATION REQUESTING PHYSICIAN: Yohannes Samaniego M.D. CONSULTING PHYSICIAN: Jojo Kauffman M.D. HISTORY OF PRESENT ILLNESS: This is an 88-year-old woman who was just seen in the emergency room on the with lower extremity edema and weakness. She had had diarrhea prior to that admission, started eating already, came to the emergency room, was noted to have an elevated BUN and creatinine. Wanted to go home, and ended up going home with her family members. She over the course of the weekend remained weak. The family reported she had a fever of 99, and they brought her back to the emergency room with these complaints. Over the weekend they had held her diuretics as well as her ARB. She notes that she has some cough. She has no sick contacts. She lives with her son. There are multiple physicians in the family. Early last week, she was apparently given 2 doses of ceftriaxone and 2 doses of fosfomycin when she had the diarrhea. She has not been in the hospital since 2015. There is no history of any recent travel. PAST MEDICAL HISTORY: Notable for atrial fibrillation, heart failure, hypertension, renal insufficiency, and diabetes. She has no pacemakers or valve replacement. She had no joint replacement. SOCIAL HISTORY: She is . No history of any alcohol or substance use. She lives with her son. ALLERGIES: She is allergic to CODEINE. MEDICATIONS AT HOME: Include Lanoxin, Lasix, insulin, Tradjenta, Victoza, Toprol, Benicar, Xarelto, and Crestor. REVIEW OF SYSTEMS: She reports a sore throat. She denies any more diarrhea. She has no dysuria at all. She is urinating easily, and she has no stomach pain or chest pain. PHYSICAL EXAMINATION: GENERAL: She is awake and alert. VITAL SIGNS: Temperature 98.8, pulse of 95, blood pressure 139/55, respiratory rate 16. HEENT: Normocephalic. Eyes are anicteric. She has a little thrush on her tongue. She looks like she has exudates on her tonsils. NECK: Supple. LUNGS: Bibasilar crackles. HEART: Irregularly irregular. ABDOMEN: Soft, nontender. EXTREMITIES: Trace edema. SKIN: She has no skin breakdown. Her chest x-ray reveals cardiomegaly, no large effusions, and she has some congestive changes with possibly an early right lower lobe infiltrate. Labs are notable for white count of 15, hemoglobin 10.6, platelets of 181. BUN and creatinine are 42 and 2. Liver function tests are normal. Urinalysis is negative for leukocytes with 3 white cells and influenza screen is pending as well as group A strep swab which was just sent. IMPRESSION: In summary, this is an 88-year-old woman admitted with weakness, some cough, shortness of breath, noted to have leukocytosis, cannot rule out pneumonia versus congestive heart failure. Given the elevated white count, would obtain cultures, a legionella urinary antigen, and treat her for community-acquired pneumonia with Rocephin and Zithromax. Would obtain an influenza screen and a throat culture to rule out strep throat. Would treat her with Nystatin for thrush. Further recommendations to follow. Case was discussed with software quality assurance specialist, Dr. Samaniego. OJJO KAUFFMAN M.D. [id number]
--- NOTE | 2018-05-08 19:33 | HP ---
Admitting History and Physical - Admission History of Present Illness: Pt is a 88 y/o female with PMH significant for Diabetes, CKD, HTN, atrial fibrillation, chronic Diastolic heart failure, and chronic Afib. Pt was having diarrhea for about the past week and found to have rising creatinine. Pt treated by PMD and was encouraged to increase po fluids and lasix/ARB were held. However pt's condition continued to worsened w/ weakness, decreased appetite and diarrhea. However pt than developed low grade temp and came to ER. Pt also found to have episodes of rapid afib by her PMD. - Past Medical History Cardiovascular: Yes: AFIB, CHF, HTN Renal/: Yes: Renal Inusuff Endocrine: Yes: Diabetes Mellitus - Smoking History Smoking history: Never smoked Have you smoked in the past 12 months: No - Alcohol/Substance Use Hx Alcohol Use: No - Social History History of Recent Travel: No Home Medications - Allergies Allergies/Adverse Reactions: Allergies Allergy/AdvReac Type Severity Reaction Status Date / Time codeine AdvReac Severe Nausea Verified 05/05/18 10:08 - Home Medications Home Medications: Ambulatory Orders Digoxin [Lanoxin -] 0.125 mg PO DAILY 05/05/18 Furosemide [Lasix] 20 mg PO DAILY 05/05/18 Insulin Aspart [Novolog] 12 unit SQ PRN 05/05/18 Insulin Degludec [Tresiba] 60 unit SQ AM 05/05/18 Linagliptin [Tradjenta] 5 mg PO DAILY 05/05/18 Liraglutide [Victoza -] 1.8 mg SQ DAILY@0700 05/05/18 Metoprolol Succinate [Toprol Xl] 25 mg PO DAILY 05/05/18 Olmesartan Medoxomil [Benicar] 20 mg PO DAILY 05/05/18 Rivaroxaban [Xarelto] 15 mg PO DAILY 05/05/18 Rosuvastatin Calcium [Crestor] 10 mg PO DAILY 05/05/18 Family Disease History - Family Disease History Family History: Unremarkable Review of Systems - Review of Systems Constitutional: reports: Fever, Loss of Appetite, Weakness Eyes: reports: No Symptoms HENT: reports: No Symptoms Neck: reports: No Symptoms Cardiovascular: reports: No Symptoms Respiratory: reports: No Symptoms Gastrointestinal: reports: Diarrhea, Nausea Physical Examination Vital Signs: Vital Signs Temperature 98.8 F 02/25/19 08:58 Pulse Rate 95 H 05/08/18 08:58 Respiratory Rate 16 05/08/18 08:58 Blood Pressure 139/55 L 05/08/18 08:58 O2 Sat by Pulse Oximetry (%) 95 05/08/18 09:15 Eyes: Yes: WNL HENT: Yes: WNL Neck: Yes: WNL, Supple Cardiovascular: Yes: Tachycardia, Pulse Irregular Respiratory: Yes: Rales Gastrointestinal: Yes: WNL, Normal Bowel Sounds, Soft Extremities: Yes: WNL Edema: LLE: 1+, RLE: 1+ Neurological: Yes: WNL, Alert, Oriented ...Motor Strength: WNL Labs: CBC, BMP 05/08/18 10:04 05/08/18 10:04 Problem List - Problems (1) Acute on chronic diastolic (congestive) heart failure Assessment/Plan: Cont IV lasix Monitor electrolytes and renal function Code(s): I50.33 - ACUTE ON CHRONIC DIASTOLIC (CONGESTIVE) HEART FAILURE (2) Leukocytosis Assessment/Plan: Cont IV ceftriaxone/zithro ?Pneumonia Follow cultures Legionella is negative As per ID Repeat WBC in am Check lactic acid in am Code(s): D72.829 - ELEVATED WHITE BLOOD CELL COUNT, UNSPECIFIED (3) Acute on chronic renal failure Assessment/Plan: ?Due to dehydration secondary to diarrhea renal consult Moitor labs Code(s): N17.9 - ACUTE KIDNEY FAILURE, UNSPECIFIED; N18.9 - CHRONIC KIDNEY DISEASE, UNSPECIFIED (4) Afib Assessment/Plan: Pt w/ rapid heart rate Pt now on IV amiodarone ARB/Dig being held due to ARF Cont xarelto Code(s): I48.91 - UNSPECIFIED ATRIAL FIBRILLATION (5) Diabetes Assessment/Plan: Uncontrolled diabetes As per endo Cont levemir/sliding scale w/ coverage Code(s): E11.9 - TYPE 2 DIABETES MELLITUS WITHOUT COMPLICATIONS Qualifiers: Diabetes mellitus type: type 2 Diabetes mellitus complication status: without complication (6) Diarrhea Assessment/Plan: Check stool studies GI consult Code(s): R19.7 - DIARRHEA, UNSPECIFIED (7) Generalized weakness Assessment/Plan: Due to dehydration Code(s): R53.1 - WEAKNESS
[2018-05-08] MEDS: ROSUVASTATIN CA 10 MG TABLET (FP) PO SCH (20:59)
--- NOTE | 2018-05-08 21:25 | EKG ---
Test Reason : Blood Pressure : / mmHG Vent. Rate : 111 BPM Atrial Rate : 117 BPM P-R Int : 000 ms QRS Dur : 092 ms QT Int : 346 ms P-R-T Axes : 000 -06 167 degrees QTc Int : 470 ms ATRIAL FIBRILLATION WITH RAPID VENTRICULAR RESPONSE ANTEROSEPTAL INFARCT , AGE UNDETERMINED T WAVE ABNORMALITY, CONSIDER LATERAL ISCHEMIA ABNORMAL ECG WHEN COMPARED WITH ECG OF 05-MAY-2018 10:58, T WAVE VARIATION Confirmed by ANNE PARRA, MICHELLE ([id number]) on 05/08/2018 9:25:06 PM Referred By: Confirmed By:MICHELLE RODRÍGUEZ MD
[2018-05-08] MEDS ORDERED: INSULIN SLIDING SCALE (NOVOLOG) 1 VIAL SQ SCH ×2 (22:00)
[2018-05-08] MEDS ORDERED: INSULIN (LEVEMIR) 100 UNITS/ML UNITS SQ ONE (22:00)
--- NOTE | 2018-05-08 23:10 | CONSULT ---
Consult Consult Specialty:: Endocrine Referred by:: Dr.Elizabeth Crawford Reason for Consultation:: Diabetes mellitus type 2 - History of Present Illness Chief Complaint: shortness of breath and high sugars History of Present Illness: 88yo female with h/o DM2, CKD,HTN, atrial fibrillation, LV Diastolic Dysfunction who was recently seen in the ER with generalized weakness and diarrhea back with worsening generalized weakness and low grade temp. Denies any chest pain or n/v. . She has taken insulin dose of tresiba yet her sugars have remained elevated,despite poor appetite and strict adherance to diabetic protocol. - Past Medical History Cardio/Vascular: Yes: AFIB, CHF, HTN Renal/: Yes: Renal Inusuff Endocrine: Yes: Diabetes Mellitus - Alcohol/Substance Use Hx Alcohol Use: No - Smoking History Smoking history: Never smoked Have you smoked in the past 12 months: No - Social History Usual Living Arrangement: With Child History of Recent Travel: No Home Medications - Allergies Allergies/Adverse Reactions: Allergies Allergy/AdvReac Type Severity Reaction Status Date / Time codeine AdvReac Severe Nausea Verified 05/05/18 10:08 - Home Medications Home Medications: Ambulatory Orders Digoxin [Lanoxin -] 0.125 mg PO DAILY 05/05/18 Furosemide [Lasix] 20 mg PO DAILY 05/05/18 Insulin Aspart [Novolog] 12 unit SQ PRN 05/05/18 Insulin Degludec [Tresiba] 60 unit SQ AM 05/05/18 Linagliptin [Tradjenta] 5 mg PO DAILY 05/05/18 Liraglutide [Victoza -] 1.8 mg SQ DAILY@0700 05/05/18 Metoprolol Succinate [Toprol Xl] 25 mg PO DAILY 05/05/18 Olmesartan Medoxomil [Benicar] 20 mg PO DAILY 05/05/18 Rivaroxaban [Xarelto] 15 mg PO DAILY 05/05/18 Rosuvastatin Calcium [Crestor] 10 mg PO DAILY 05/05/18 Review of Systems - Review of Systems Constitutional: reports: Lethargy, Weakness Eyes: reports: Blurred Vision HENT: reports: Hearing Loss Neck: reports: No Symptoms Cardiovascular: reports: Palpitations, Shortness of Breath Respiratory: reports: Exercise Intolerance, Orthopnea, SOB on Exertion Gastrointestinal: reports: Bloating Genitourinary: reports: No Symptoms Breasts: reports: No Symptoms Reported Musculoskeletal: reports: Extremity Pain, Muscle Pain, Muscle Cramps, Muscle Weakness Integumentary: reports: Pallor Neurological: reports: Headache, Unsteady Gait, Weakness Endocrine: reports: Unexplained Weight Gain Physical Exam Vital Signs: Vital Signs Temperature 97.8 F 05/08/18 21:17 Pulse Rate 96 H 05/08/18 21:17 Respiratory Rate 20 05/08/18 21:37 Blood Pressure 170/78 05/08/18 21:17 O2 Sat by Pulse Oximetry (%) 93 L 05/08/18 21:37 Constitutional: Yes: Anxious Eyes: Yes: EOM Intact HENT: Yes: Normocephalic Neck: Yes: Trachea Midline Cardiovascular: Yes: Tachycardia, Murmur, S2 Respiratory: Yes: On Nasal O2, Rales, SOB on Exertion, Tachypnea Gastrointestinal: Yes: Normal Bowel Sounds Renal/: Yes: WNL Extremities: Yes: Erythema Edema: Yes Edema: LLE: Trace, RLE: Trace Neurological: Yes: Alert, Weakness Labs: CBC, BMP 05/08/18 10:04 05/08/18 10:04 Problem List - Problems (1) CHF (congestive heart failure) Code(s): I50.9 - HEART FAILURE, UNSPECIFIED (2) HODAN (acute kidney injury) Code(s): N17.9 - ACUTE KIDNEY FAILURE, UNSPECIFIED (3) Acute bronchitis Code(s): J20.9 - ACUTE BRONCHITIS, UNSPECIFIED (4) Atrial fibrillation Code(s): I48.91 - UNSPECIFIED ATRIAL FIBRILLATION Qualifiers: Atrial fibrillation type: permanent Qualified Code(s): I48.2 - Chronic atrial fibrillation (5) Chronic diastolic CHF (congestive heart failure) Code(s): I50.32 - CHRONIC DIASTOLIC (CONGESTIVE) HEART FAILURE Assessment/Plan Current Active Problems CHF (congestive heart failure) (Acute) Leukocytosis (Acute) Pneumonia (Acute) Dm 2 ckd diabetic nephropathy Abnormal Lab Results 05/08/18 05/08/18 05/08/18 09:15 10:04 10:04 WBC 15.2 H Hgb 10.6 L Hct 31.7 L RDW 17.4 H Absolute Neuts (auto) 12.6 H Neutrophils % 83.1 H Sodium 135 L BUN 42 H Creatinine 2.0 H Random Glucose 242 H Calcium 7.6 L Magnesium 1.5 L Albumin 2.9 L Urine Protein 2+ H Urine Glucose (UA) 2+ H Urine Blood 1+ H Laboratory Results - last 24 hr 05/08/18 05/08/18 05/08/18 09:15 10:04 10:04 WBC 15.2 H RBC 3.86 Hgb 10.6 L Hct 31.7 L MCV 82.3 MCH 27.6 MCHC 33.5 RDW 17.4 H Plt Count 181 MPV 9.4 Absolute Neuts (auto) 12.6 H Neutrophils % 83.1 H Lymphocytes % 10.4 D Monocytes % 6.0 Eosinophils % 0.1 D Basophils % 0.4 Nucleated RBC % 0 Sodium 135 L Potassium 5.0 Chloride 105 Carbon Dioxide 22 Anion Gap 8 BUN 42 H Creatinine 2.0 H Creat Clearance w eGFR 23.46 POC Glucometer Random Glucose 242 H Calcium 7.6 L Magnesium 1.5 L Total Bilirubin 1.0 AST 15 ALT 26 Alkaline Phosphatase 81 Creatine Kinase Troponin I 0.02 Total Protein 7.7 Albumin 2.9 L Urine Color Ltyellow Urine Appearance Clear Urine pH 5.0 Ur Specific [place] 1.012 Urine Protein 2+ H Urine Glucose (UA) 2+ H Urine Ketones Negative Urine Blood 1+ H Urine Nitrite Negative Urine Bilirubin Negative Urine Urobilinogen Negative Ur Leukocyte Esterase Negative Urine WBC (Auto) 3 Urine RBC (Auto) 2 Ur Epithelial Cells Rare Urine Bacteria Rare Influenza A (Rapid) Influenza B (Rapid) Group A Strep Rapid 05/08/18 05/08/18 05/08/18 10:10 11:26 17:11 WBC RBC Hgb Hct MCV MCH MCHC RDW Plt Count MPV Absolute Neuts (auto) Neutrophils % Lymphocytes % Monocytes % Eosinophils % Basophils % Nucleated RBC % Sodium Potassium Chloride Carbon Dioxide Anion Gap BUN Creatinine Creat Clearance w eGFR POC Glucometer 389 Random Glucose Calcium Magnesium Total Bilirubin AST ALT Alkaline Phosphatase Creatine Kinase Troponin I Total Protein Albumin Urine Color Urine Appearance Urine pH Ur Specific [place] Urine Protein Urine Glucose (UA) Urine Ketones Urine Blood Urine Nitrite Urine Bilirubin Urine Urobilinogen Ur Leukocyte Esterase Urine WBC (Auto) Urine RBC (Auto) Ur Epithelial Cells Urine Bacteria Influenza A (Rapid) Negative Influenza B (Rapid) Negative Group A Strep Rapid Negative 05/08/18 05/08/18 17:30 20:36 WBC RBC Hgb Hct MCV MCH MCHC RDW Plt Count MPV Absolute Neuts (auto) Neutrophils % Lymphocytes % Monocytes % Eosinophils % Basophils % Nucleated RBC % Sodium Potassium Chloride Carbon Dioxide Anion Gap BUN Creatinine Creat Clearance w eGFR POC Glucometer 273 Random Glucose Calcium Magnesium Total Bilirubin AST ALT Alkaline Phosphatase Creatine Kinase 33 Troponin I 0.02 Total Protein Albumin Urine Color Urine Appearance Urine pH Ur Specific [place] Urine Protein Urine Glucose (UA) Urine Ketones Urine Blood Urine Nitrite Urine Bilirubin Urine Urobilinogen Ur Leukocyte Esterase Urine WBC (Auto) Urine RBC (Auto) Ur Epithelial Cells Urine Bacteria Influenza A (Rapid) Influenza B (Rapid) Group A Strep Rapid impression/plan: levemir dose 25 units q am bgm with novolog insulin dose ck hba1c
[2018-05-09] MEDS: INSULIN SLIDING SCALE (NOVOLOG) 1 VIAL SQ SCH ×7 (02:38→21:05)
[2018-05-09 06:38] LABS: BASO % 0.5 % (0-2.0); EOS % 0.5 % (0-4.5); HEMOGLOBIN 9.2 GM/dL (10.7-15.3); MCH 27.8 pg (25.7-33.7); MCHC 34.1 g/dl (32.0-36.0); MEAN CELL VOLUME 81.3 fl (80-96); MONO % 5.9 % (3.8-10.2); NEUT % 82.1 % (42.8-82.8); PLATELET COUNT 165 K/MM3 (134-434); RBC 3.32 M/mm3 (3.60-5.2); RDW 17.1 % (11.6-15.6); WHITE BLOOD COUNT 12.2 K/mm3 (4.0-10.0)
[2018-05-09] MEDS ORDERED: INSULIN DEGLUDEC 60 UNIT SQ SCH (07:00)
[2018-05-09] MEDS ORDERED: INSULIN (LEVEMIR) 100 UNITS/ML UNITS SQ SCH (07:00)
[2018-05-09] MEDS: NYSTATIN 500,000 UNITS/5 ML SUSPENSION PO SCH ×4 (07:05→17:09)
[2018-05-09] MEDS: sitaGLIPtin PHOSPHATE 25 MG TABLET (FP) PO SCH (07:06)
[2018-05-09] MEDS: LIRAGLUTIDE 0.6 MG/0.1 ML PEN.INJCTR SQ SCH (07:07)
[2018-05-09 07:30] LABS: ALBUMIN 2.4 g/dl (3.4-5.0); ALK PHOS 73 U/L (45-117); ANION GAP 7 MMOL/L (8-16); BILIRUBIN,TOTAL 0.6 mg/dL (0.2-1); BLOOD UREA NITROGEN 44 mg/dL (7-18); CALCIUM 7.4 mg/dL (8.5-10.1); CHLORIDE 101 mmol/L (98-107); CO2 23 mmol/L (21-32); GLUCOSE,RANDOM 187 mg/dL (74-106); MAGNESIUM 1.4 mg/dL (1.8-2.4); N-TERMINAL BNP 9263.2 pg/ml (5-450); POTASSIUM 4.7 mmol/L (3.5-5.1); SGOT/AST 10 U/L (15-37); SGPT/ALT 19 U/L (13-61); SODIUM 132 mmol/L (136-145); TOT PROT 6.6 g/dl (6.4-8.2)
[2018-05-09] MEDS ORDERED: cefTRIAXone SODIUM 1 GM VIAL ONE (08:54)
[2018-05-09] MEDS ORDERED: DEXTROSE 5%-WATER - 50 ML IVPB ONE (08:54)
[2018-05-09] MEDS: CEFTRIAXONE 1 GM in DEXTROSE 5%-WATER - 50 ML IVPB SCH (09:48)
[2018-05-09] MEDS: metoPROLOL SUCCINATE 25 MG TAB.SR.24H (FP) PO SCH ×2 (09:49→21:02)
[2018-05-09] MEDS: ROSUVASTATIN CA 10 MG TABLET (FP) PO SCH (09:49)
[2018-05-09] MEDS: PANTOPRAZOLE 40 MG TABLET (FP) PO SCH (09:49)
[2018-05-09] MEDS: MAGNESIUM OXIDE 400 MG TABLET (FP) PO SCH ×2 (09:49→21:02)
[2018-05-09] MEDS: FUROSEMIDE 40 MG/4 ML INJECTABLE VIAL IVPUSH SCH (09:49)
[2018-05-09] MEDS ORDERED: PATIENT'S OWN MEDICATION (NON-FORMULARY) (Linagliptin [Tradjenta] 5 MG) PO SCH (10:00)
--- NOTE | 2018-05-09 10:39 | PN ---
Progress Note, Physician History of Present Illness: PULMONARY ALERT,OOB-CHAIR,LESS DYSPNEIC,O2 SAT 92% ON RA AT REST,O2 SAT 85% AMBULATING ON RA - Current Medication List Current Medications: Active Medications Furosemide (Lasix Injection -) 40 mg IVPUSH DAILY [facility] Last Admin: 05/09/18 09:49 Dose: 40 mg Ceftriaxone Sodium 1 gm/ (Dextrose) 50 mls @ 100 mls/hr IVPB DAILY [facility]; Protocol Last Admin: 05/09/18 09:48 Dose: 100 mls/hr Insulin Aspart (Novolog Vial Sliding Scale -) 1 vial SQ Q4HPO [facility]; Protocol Last Admin: 05/09/18 07:04 Dose: 4 unit Insulin Detemir (Levemir Vial) 25 units SQ AM [facility] Last Admin: 05/09/18 07:06 Dose: 25 unit Liraglutide (Victoza -) 1.8 mg SQ DAILY@0700 [facility] Last Admin: 05/09/18 07:07 Dose: 1.8 mg Magnesium Oxide (Mag-Ox -) 400 mg PO BID [facility] Last Admin: 05/09/18 09:49 Dose: 400 mg Metoprolol Succinate (Toprol Xl -) 25 mg PO BID [facility] Last Admin: 05/09/18 09:49 Dose: 25 mg Nystatin (Nystatin Oral Suspension -) 500,000 units PO Q6HPO [facility] Last Admin: 05/09/18 07:05 Dose: 500,000 units Pantoprazole Sodium (Protonix -) 40 mg PO DAILY [facility] Last Admin: 05/09/18 09:49 Dose: 40 mg Rivaroxaban (Xarelto) 15 mg PO DAILY@1800 [facility] Rosuvastatin Calcium (Crestor -) 10 mg PO DAILY [facility] Last Admin: 05/09/18 09:49 Dose: 10 mg Sitagliptin Phosphate (Januvia -) 25 mg PO DAILY@0700 [facility] Last Admin: 05/09/18 07:06 Dose: 25 mg - Objective Vital Signs: Vital Signs Temperature 97.9 F 05/09/18 09:33 Pulse Rate 101 H 05/09/18 09:33 Respiratory Rate 20 05/09/18 09:33 Blood Pressure 151/67 05/09/18 09:33 O2 Sat by Pulse Oximetry (%) 96 05/09/18 09:37 Constitutional: Yes: Well Nourished Eyes: Yes: WNL HENT: Yes: WNL Neck: Yes: WNL Cardiovascular: Yes: Pulse Irregular, S1, S2 Respiratory: Yes: Rales (BIBASILAR RALES) Gastrointestinal: Yes: Normal Bowel Sounds, Soft Extremities: Yes: WNL Edema: Yes Labs: CBC, BMP 05/09/18 06:00 05/09/18 06:00 Assessment/Plan Problem List - Problems (1) Atrial fibrillation Code(s): I48.91 - UNSPECIFIED ATRIAL FIBRILLATION Qualifiers: Atrial fibrillation type: permanent Qualified Code(s): I48.2 - Chronic atrial fibrillation (2) Chronic diastolic CHF (congestive heart failure) Code(s): I50.32 - CHRONIC DIASTOLIC (CONGESTIVE) HEART FAILURE (3) Diabetes Code(s): E11.9 - TYPE 2 DIABETES MELLITUS WITHOUT COMPLICATIONS Qualifiers: Diabetes mellitus type: type 2 Diabetes mellitus complication status: without complication Assessment/Plan Atrial Fibrillation with RVR Acute on Chronic Diastolic Heart Failure r/o Pneumonia CKD HTN DM ANEMIA - antibiotics as per ID - lasix - monitor urine output, creatinine - O2 to keep SpO2 >90% - CXR - rate control - anticoagulation - monitor cbc - daily wt DR WESTFALL
--- NOTE | 2018-05-09 10:46 | EKG ---
Test Reason : Blood Pressure : / mmHG Vent. Rate : 097 BPM Atrial Rate : 105 BPM P-R Int : 000 ms QRS Dur : 086 ms QT Int : 336 ms P-R-T Axes : 000 -08 167 degrees QTc Int : 426 ms ATRIAL FIBRILLATION SEPTAL INFARCT (CITED ON OR BEFORE 08-MAY-2018) ABNORMAL ECG WHEN COMPARED WITH ECG OF 08-MAY-2018 09:33, NO SIGNIFICANT CHANGE WAS FOUND Confirmed by Rashaun Man MD ([id number]) on 05/09/2018 10:46:27 AM Referred By: SHARMIN OMER DROKJUMANA Confirmed By:Rashaun Man MD
--- NOTE | 2018-05-09 11:56 | PN ---
Progress Note, Physician Chief Complaint: seen and examined, surrounded by family No distress TELE: Rate controlled AF without RVR or sig pauses She feels better, but O2 saturation at rest on R.A = 90%, with exertion 85% - Current Medication List Current Medications: Active Medications Furosemide (Lasix Injection -) 40 mg IVPUSH DAILY [facility] Last Admin: 05/09/18 09:49 Dose: 40 mg Ceftriaxone Sodium 1 gm/ (Dextrose) 50 mls @ 100 mls/hr IVPB DAILY [facility]; Protocol Last Admin: 05/09/18 09:48 Dose: 100 mls/hr Insulin Aspart (Novolog Vial Sliding Scale -) 1 vial SQ Q4HPO [facility]; Protocol Last Admin: 05/09/18 11:12 Dose: Not Given Insulin Detemir (Levemir Vial) 25 units SQ AM [facility] Last Admin: 05/09/18 07:06 Dose: 25 unit Liraglutide (Victoza -) 1.8 mg SQ DAILY@0700 [facility] Last Admin: 05/09/18 07:07 Dose: 1.8 mg Magnesium Oxide (Mag-Ox -) 400 mg PO BID [facility] Last Admin: 05/09/18 09:49 Dose: 400 mg Metoprolol Succinate (Toprol Xl -) 25 mg PO BID [facility] Last Admin: 05/09/18 09:49 Dose: 25 mg Nystatin (Nystatin Oral Suspension -) 500,000 units PO Q6HPO [facility] Last Admin: 05/09/18 07:05 Dose: 500,000 units Pantoprazole Sodium (Protonix -) 40 mg PO DAILY [facility] Last Admin: 05/09/18 09:49 Dose: 40 mg Rivaroxaban (Xarelto) 15 mg PO DAILY@1800 [facility] Rosuvastatin Calcium (Crestor -) 10 mg PO DAILY [facility] Last Admin: 05/09/18 09:49 Dose: 10 mg Sitagliptin Phosphate (Januvia -) 25 mg PO DAILY@0700 [facility] Last Admin: 05/09/18 07:06 Dose: 25 mg - Objective Vital Signs: Vital Signs Temperature 97.9 F 05/09/18 09:33 Pulse Rate 101 H 05/09/18 09:33 Respiratory Rate 20 05/09/18 09:33 Blood Pressure 151/67 05/09/18 09:33 O2 Sat by Pulse Oximetry (%) 96 05/09/18 09:37 Constitutional: Yes: No Distress, Calm Eyes: Yes: Conjunctiva Clear, EOM Intact Cardiovascular: Yes: Pulse Irregular Respiratory: Yes: Other (left lung clear; Right basilar rales persist) Gastrointestinal: Yes: Soft, Abdomen, Obese Edema: Yes Edema: LLE: 1+ (ankle), RLE: 1+ (ankle) Neurological: Yes: Alert, Oriented ...Motor Strength: WNL Psychiatric: Yes: WNL Labs: CBC, BMP 05/09/18 06:00 05/09/18 06:00 Microbiology 05/08/18 11:40 Throat Throat Culture - Final NO BETA HEMOLYTIC STREPTOCOCCI ISOLATED 05/08/18 10:04 Blood - Peripheral Venous Blood Culture - Preliminary NO GROWTH OBTAINED AFTER 24 HOURS, INCUBATION TO CONTINUE FOR 4 DAYS. 05/08/18 09:55 Blood - Peripheral Venous Blood Culture - Preliminary NO GROWTH OBTAINED AFTER 24 HOURS, INCUBATION TO CONTINUE FOR 4 DAYS. Laboratory Tests 05/08/18 05/08/18 05/09/18 10:04 10:10 06:00 WBC 15.2 H 12.2 H Hgb 9.2 L Hct 27.0 L Plt Count 165 Sodium Potassium BUN Creatinine Hemoglobin A1c % B-Natriuretic Peptide Digoxin Influenza A (Rapid) Negative Influenza B (Rapid) Negative 05/09/18 05/09/18 06:00 06:00 WBC Hgb Hct Plt Count Sodium 132 L Potassium 4.7 BUN 44 H Creatinine 2.0 H Hemoglobin A1c % 10.3 H B-Natriuretic Peptide 9263.2 H Digoxin 1.26 Influenza A (Rapid) Influenza B (Rapid) - ....Imaging EKG: Image Reviewed Problem List - Problems (1) Chronic diastolic CHF (congestive heart failure) Code(s): I50.32 - CHRONIC DIASTOLIC (CONGESTIVE) HEART FAILURE (2) Atrial fibrillation Code(s): I48.91 - UNSPECIFIED ATRIAL FIBRILLATION Qualifiers: Atrial fibrillation type: permanent Qualified Code(s): I48.2 - Chronic atrial fibrillation (3) Diabetes Code(s): E11.9 - TYPE 2 DIABETES MELLITUS WITHOUT COMPLICATIONS Qualifiers: Diabetes mellitus type: type 2 Diabetes mellitus complication status: without complication (4) Pneumonia Code(s): J18.9 - PNEUMONIA, UNSPECIFIED ORGANISM Qualifiers: Pneumonia type: due to unspecified organism Laterality: right Lung location: lower lobe of lung Qualified Code(s): J18.1 - Lobar pneumonia, unspecified organism (5) Acute renal failure Code(s): N17.9 - ACUTE KIDNEY FAILURE, UNSPECIFIED Qualifiers: Acute renal failure type: unspecified Qualified Code(s): N17.9 - Acute kidney failure, unspecified Assessment/Plan IMP: Recent diarrheal illness Acute on chronic renal failure Chronic diastolic CHF, acute exacerbation RLL PNA, community acquired Permanent AF DM, type 2 REC: 1. AF overall controlled now, continue Toprol XL 25mg BID and can resume digoxin 0.125mg QOD. -Continue Xarelto, adjusted for GFR 2. BNP remains elevated above baseline and hyponatremic, likely on the basis of mild volume overload. -Continue IV Lasix with daily BMP to monitor electrolytes and renal function -Daily weights, today 200lbs. 3. Appreciate Renal and Endocrine f/u. 4. Discussed with business case analyst to obtain home O2. Cont Abx for CAP as per ID and Pulmonary.
--- NOTE | 2018-05-09 12:15 | PN ---
Progress Note, Physician History of Present Illness: Pt seen and examined at bedside. She is awake and alert. She feels that her breathing is improved. She has good appetite. - Current Medication List Current Medications: Active Medications Furosemide (Lasix Injection -) 40 mg IVPUSH DAILY [facility] Last Admin: 05/09/18 09:49 Dose: 40 mg Ceftriaxone Sodium 1 gm/ (Dextrose) 50 mls @ 100 mls/hr IVPB DAILY [facility]; Protocol Last Admin: 05/09/18 09:48 Dose: 100 mls/hr Insulin Aspart (Novolog Vial Sliding Scale -) 1 vial SQ Q4HPO [facility]; Protocol Last Admin: 05/09/18 11:12 Dose: Not Given Insulin Detemir (Levemir Vial) 25 units SQ AM [facility] Last Admin: 05/09/18 07:06 Dose: 25 unit Liraglutide (Victoza -) 1.8 mg SQ DAILY@0700 [facility] Last Admin: 05/09/18 07:07 Dose: 1.8 mg Magnesium Oxide (Mag-Ox -) 400 mg PO BID [facility] Last Admin: 05/09/18 09:49 Dose: 400 mg Metoprolol Succinate (Toprol Xl -) 25 mg PO BID [facility] Last Admin: 05/09/18 09:49 Dose: 25 mg Nystatin (Nystatin Oral Suspension -) 500,000 units PO Q6HPO [facility] Last Admin: 05/09/18 07:05 Dose: 500,000 units Pantoprazole Sodium (Protonix -) 40 mg PO DAILY [facility] Last Admin: 05/09/18 09:49 Dose: 40 mg Rivaroxaban (Xarelto) 15 mg PO DAILY@1800 [facility] Rosuvastatin Calcium (Crestor -) 10 mg PO DAILY [facility] Last Admin: 05/09/18 09:49 Dose: 10 mg Sitagliptin Phosphate (Januvia -) 25 mg PO DAILY@0700 [facility] Last Admin: 05/09/18 07:06 Dose: 25 mg - Objective Vital Signs: Vital Signs Temperature 97.9 F 05/09/18 09:33 Pulse Rate 101 H 05/09/18 09:33 Respiratory Rate 20 05/09/18 09:33 Blood Pressure 151/67 05/09/18 09:33 O2 Sat by Pulse Oximetry (%) 96 05/09/18 09:37 Constitutional: Yes: Calm Eyes: Yes: Conjunctiva Clear HENT: Yes: Atraumatic Neck: Yes: Supple Cardiovascular: Yes: S1, S2 Respiratory: Yes: Rhonchi Gastrointestinal: Yes: Soft Genitourinary: Yes: WNL Musculoskeletal: Yes: WNL Extremities: Yes: WNL Edema: Yes Edema: LLE: 2+, RLE: 2+ Neurological: Yes: Oriented Psychiatric: Yes: Oriented Labs: CBC, BMP 05/09/18 06:00 05/09/18 06:00 Problem List - Problems (1) CHF (congestive heart failure) Code(s): I50.9 - HEART FAILURE, UNSPECIFIED (2) HODAN (acute kidney injury) Code(s): N17.9 - ACUTE KIDNEY FAILURE, UNSPECIFIED (3) Atrial fibrillation Code(s): I48.91 - UNSPECIFIED ATRIAL FIBRILLATION Qualifiers: Atrial fibrillation type: permanent Qualified Code(s): I48.2 - Chronic atrial fibrillation Assessment/Plan Current Medications Generic Name Dose Route Start Last Admin Trade Name Freq PRN Reason Stop Dose Admin Furosemide 40 mg 05/08/18 11:45 05/09/18 09:49 Lasix Injection - IVPUSH 40 mg DAILY [facility] Administration Ceftriaxone Sodium 1 gm/ 50 mls @ 100 mls/hr 05/09/18 10:00 05/09/18 09:48 Dextrose IVPB 100 mls/hr DAILY [facility] Administration Protocol Insulin Aspart 1 vial 05/08/18 18:00 05/09/18 11:12 Novolog Vial Sliding Scale - SQ Not Given Q4HPO [facility] Protocol Insulin Detemir 25 units 05/09/18 07:00 05/09/18 07:06 Levemir Vial SQ 25 unit AM [facility] Administration Liraglutide 1.8 mg 05/09/18 07:00 05/09/18 07:07 Victoza - SQ 1.8 mg DAILY@0700 [facility] Administration Magnesium Oxide 400 mg 05/08/18 11:45 05/09/18 09:49 Mag-Ox - PO 400 mg BID [facility] Administration Metoprolol Succinate 25 mg 05/08/18 10:00 05/09/18 09:49 Toprol Xl - PO 25 mg BID [facility] Administration Nystatin 500,000 units 05/08/18 18:00 05/09/18 07:05 Nystatin Oral Suspension - PO 500,000 units Q6HPO [facility] Administration Pantoprazole Sodium 40 mg 05/08/18 16:30 05/09/18 09:49 Protonix - PO 40 mg DAILY [facility] Administration Rivaroxaban 15 mg 05/09/18 18:00 Xarelto PO DAILY@1800 [facility] Rosuvastatin Calcium 10 mg 05/08/18 19:30 05/09/18 09:49 Crestor - PO 10 mg DAILY [facility] Administration Sitagliptin Phosphate 25 mg 05/09/18 07:00 05/09/18 07:06 Januvia - PO 25 mg DAILY@0700 [facility] Administration Microbiology 05/08/18 11:40 Throat Throat Culture - Final NO BETA HEMOLYTIC STREPTOCOCCI ISOLATED 05/08/18 10:04 Blood - Peripheral Venous Blood Culture - Preliminary NO GROWTH OBTAINED AFTER 24 HOURS, INCUBATION TO CONTINUE FOR 4 DAYS. 05/08/18 09:55 Blood - Peripheral Venous Blood Culture - Preliminary NO GROWTH OBTAINED AFTER 24 HOURS, INCUBATION TO CONTINUE FOR 4 DAYS. 05/08/18 09:15 Urine For Antigen Detection Legionella Antigen - Preliminary Laboratory Tests 05/09/18 05/09/18 05/09/18 06:00 06:00 06:00 Sodium 132 L Potassium 4.7 Hemoglobin A1c % 10.3 H Lactic Acid 1.5 Magnesium 1.4 L B-Natriuretic Peptide 9263.2 H Digoxin 1.26 Impression 1. HODAN 2. CKD 3. CHF 4. a-fib 5. diarrhea - resolved 6. a-fib 7. DM 8. HTN 9. mild dementia 10. hyperlipiemia 11. fluid overload Plan - toprol increased to BID, should help with rate and BP - cont lasix iv - repeat labs in am - hold olinda for now - follow blood cultures - discussed with family Dr Mcgee
--- NOTE | 2018-05-09 13:02 | ECHO ---
Name: TISHA WALLACE Exam:Adult Echocardiogram Study Date: 05/09/2018 08:17 AM Age: 88 yrs Reason For Study: CHF Height: 68 in Weight: 200 lb BSA: 2.0 m2 MMode/2D Measurements & Calculations IVSd: 1.6 cm Ao root diam: 3.1 cm LVIDd: 3.4 cm LA dimension: 2.9 cm LVIDs: 2.5 cm LVPWd: 1.1 cm EDV(Teich): 47.4 ml LVOT diam: 2.0 cm ESV(Teich): 23.3 ml LAV (MOD-bp): 73.4 ml Doppler Measurements & Calculations MV E max brock: 120.0 cm/sec TR max brock: 379.8 cm/sec MV dec time: 0.10 sec TR max P.8 mmHg Med Peak E' Brock: 5.5 cm/sec Med E/e': 21.6 Lat Peak E' Brock: 11.3 cm/sec Lat E/e': 10.6 Procedure A complete two-dimensional transthoracic echocardiogram was performed (2D, M-mode, Doppler and color flow Doppler). Left Ventricle The left ventricular size, thickness and function are normal. Ejection Fraction = 70%. The transmitra l spectral Doppler flow pattern is suggestive of impaired LV relaxation. The left ventricular wall bogdan on is normal. Right Ventricle The right ventricle is normal in size and function. Atria Normal left and right atrial size and function. Mitral Valve There is moderate mitral annular calcification. There is mild to moderate mitral regurgitation. Tricuspid Valve The tricuspid valve is normal. Right ventricular systolic pressure is elevated at >60mmHg. There is s evere pulmonary hypertension. There is mild to moderate tricuspid regurgitation. 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 No hemodynamically significant valvular aortic stenos is. Pulmonic Valve The pulmonic valve is not well visualized. Great Vessels The aortic root is normal size. Pericardium/Pleura There is no pericardial effusion. There is no pleural effusion. Interpretation Summary The left ventricular size, thickness and function are normal Ejection Fraction = 70%. There is moderate mitral annular calcification. There is mild to moderate mitral regurgitation. There is mild to moderate tricuspid regurgitation. There is severe pulmonary hypertension. Right ventricular systolic pressure is elevated at >60mmHg. 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
[2018-05-09] MEDS ORDERED: PT OWN MED DRAWER 7, Y5N ONE ×2 (16:51→19:23)
[2018-05-09] MEDS: RIVAROXABAN 15 MG TABLET PO SCH (17:04)
--- NOTE | 2018-05-09 17:29 | PN ---
Progress Note (short form) - Note Progress Note: less cough less sore throat eating dinner no vomiting feels better Vital Signs Period Temp Pulse Resp BP Sys/Luna Pulse Ox Last 24 Hr 97.8 F-98.3 F 94-101 18-20 121-170/58-78 93-97 cor-rrr lungs bibasilar crackles abd soft,nt ext no edema CBC, BMP 05/09/18 06:00 05/09/18 06:00 Microbiology 05/08/18 10:04 Blood - Peripheral Venous Blood Culture - Preliminary NO GROWTH OBTAINED AFTER 24 HOURS, INCUBATION TO CONTINUE FOR 4 DAYS. 05/08/18 09:55 Blood - Peripheral Venous Blood Culture - Preliminary NO GROWTH OBTAINED AFTER 24 HOURS, INCUBATION TO CONTINUE FOR 4 DAYS. 05/08/18 11:40 Throat Throat Culture - Final NO BETA HEMOLYTIC STREPTOCOCCI ISOLATED 05/08/18 09:15 Urine For Antigen Detection Legionella Antigen - Preliminary IMP/RECCD leukocytosis cannot r/o CAP vs CHF rapid afib influenza screen negative legionella antigen negative wbc trending down continue rocephin d/w family at bedside Problem List - Problems (1) Leukocytosis Code(s): D72.829 - ELEVATED WHITE BLOOD CELL COUNT, UNSPECIFIED (2) Pneumonia Code(s): J18.9 - PNEUMONIA, UNSPECIFIED ORGANISM Qualifiers: Pneumonia type: due to unspecified organism Laterality: right Lung location: lower lobe of lung Qualified Code(s): J18.1 - Lobar pneumonia, unspecified organism (3) CHF (congestive heart failure) Code(s): I50.9 - HEART FAILURE, UNSPECIFIED
[2018-05-09] MEDS: INSULIN (LEVEMIR) 100 UNITS/ML UNITS SQ SCH (21:05)
--- NOTE | 2018-05-09 22:22 | PN ---
Progress Note, Physician History of Present Illness: No new complaints - Current Medication List Current Medications: Active Medications Furosemide (Lasix Injection -) 40 mg IVPUSH DAILY [facility] Last Admin: 05/09/18 09:49 Dose: 40 mg Ceftriaxone Sodium 1 gm/ (Dextrose) 50 mls @ 100 mls/hr IVPB DAILY [facility]; Protocol Last Admin: 05/09/18 09:48 Dose: 100 mls/hr Insulin Aspart (Novolog Vial Sliding Scale -) 1 vial SQ ACHS [facility]; Protocol Last Admin: 05/09/18 21:05 Dose: Not Given Insulin Detemir (Levemir Vial) 35 units SQ AM [facility] Insulin Detemir (Levemir Vial) 12 units SQ HS [facility] Last Admin: 05/09/18 21:05 Dose: Not Given Liraglutide (Victoza -) 1.8 mg SQ DAILY@0700 [facility] Last Admin: 05/09/18 07:07 Dose: 1.8 mg Magnesium Oxide (Mag-Ox -) 400 mg PO BID [facility] Last Admin: 05/09/18 21:02 Dose: 400 mg Metoprolol Succinate (Toprol Xl -) 25 mg PO BID [facility] Last Admin: 05/09/18 21:02 Dose: 25 mg Nystatin (Nystatin Oral Suspension -) 500,000 units PO Q6HPO [facility] Last Admin: 05/09/18 17:09 Dose: Not Given Pantoprazole Sodium (Protonix -) 40 mg PO DAILY [facility] Last Admin: 05/09/18 09:49 Dose: 40 mg Rivaroxaban (Xarelto) 15 mg PO DAILY@1800 [facility] Last Admin: 05/09/18 17:04 Dose: 15 mg Rosuvastatin Calcium (Crestor -) 10 mg PO DAILY [facility] Last Admin: 05/09/18 09:49 Dose: 10 mg Sitagliptin Phosphate (Januvia -) 25 mg PO DAILY@0700 [facility] Last Admin: 05/09/18 07:06 Dose: 25 mg - Objective Vital Signs: Vital Signs Temperature 98 F 05/09/18 19:00 Pulse Rate 103 H 05/09/18 19:00 Respiratory Rate 98 H 05/09/18 19:00 Blood Pressure 122/52 L 05/09/18 19:00 O2 Sat by Pulse Oximetry (%) 96 05/09/18 09:37 Neck: Yes: WNL, Supple Cardiovascular: Yes: Pulse Irregular Respiratory: Yes: Diminished Gastrointestinal: Yes: WNL, Normal Bowel Sounds, Soft Edema: LLE: Trace, RLE: Trace Labs: CBC, BMP 05/09/18 06:00 05/09/18 06:00 Problem List - Problems (1) Acute on chronic diastolic (congestive) heart failure Assessment/Plan: Cont IV lasix Monitor electrolytes and renal function Code(s): I50.33 - ACUTE ON CHRONIC DIASTOLIC (CONGESTIVE) HEART FAILURE (2) Leukocytosis Assessment/Plan: Cont IV ceftriaxone/zithro ?Pneumonia Follow cultures WBC is decreasing Code(s): D72.829 - ELEVATED WHITE BLOOD CELL COUNT, UNSPECIFIED (3) Acute on chronic renal failure Assessment/Plan: ?Due to dehydration secondary to diarrhea Moitor labs Code(s): N17.9 - ACUTE KIDNEY FAILURE, UNSPECIFIED; N18.9 - CHRONIC KIDNEY DISEASE, UNSPECIFIED (4) Afib Assessment/Plan: Heart rate better controlled Cont BB Cont xarelto Code(s): I48.91 - UNSPECIFIED ATRIAL FIBRILLATION (5) Diabetes Assessment/Plan: Uncontrolled diabetes Cont levemir/sliding scale w/ coverage Code(s): E11.9 - TYPE 2 DIABETES MELLITUS WITHOUT COMPLICATIONS Qualifiers: Diabetes mellitus type: type 2 Diabetes mellitus complication status: without complication (6) Diarrhea Assessment/Plan: Resolved Code(s): R19.7 - DIARRHEA, UNSPECIFIED (7) Generalized weakness Assessment/Plan: Due to dehydration Code(s): R53.1 - WEAKNESS
[2018-05-10] MEDS: NYSTATIN 500,000 UNITS/5 ML SUSPENSION PO SCH ×5 (00:07→23:28)
[2018-05-10] MEDS ORDERED: PT OWN MED DRAWER 7, Y5N ONE ×2 (06:27→17:17)
[2018-05-10] MEDS: sitaGLIPtin PHOSPHATE 25 MG TABLET (FP) PO SCH (06:30)
[2018-05-10] MEDS: INSULIN SLIDING SCALE (NOVOLOG) 1 VIAL SQ SCH ×4 (06:31→21:27)
[2018-05-10] MEDS: LIRAGLUTIDE 0.6 MG/0.1 ML PEN.INJCTR SQ SCH (06:31)
[2018-05-10 06:43] LABS: BASO % 0.6 % (0-2.0); EOS % 2.1 % (0-4.5); HEMOGLOBIN 8.9 GM/dL (10.7-15.3); LYMPH % 18.6 % (8-40); MCH 27.7 pg (25.7-33.7); MCHC 34.2 g/dl (32.0-36.0); MEAN CELL VOLUME 80.8 fl (80-96); MEAN PLT VOLUME 8.8 fl (7.5-11.1); MONO % 6.3 % (3.8-10.2); NEUT % 72.4 % (42.8-82.8); PLATELET COUNT 161 K/MM3 (134-434); RBC 3.22 M/mm3 (3.60-5.2); RDW 17.3 % (11.6-15.6); WHITE BLOOD COUNT 8.7 K/mm3 (4.0-10.0)
[2018-05-10] MEDS ORDERED: INSULIN (LEVEMIR) 100 UNITS/ML UNITS SQ SCH (07:00)
[2018-05-10 07:14] LABS: ALBUMIN 2.3 g/dl (3.4-5.0); ALK PHOS 78 U/L (45-117); ANION GAP 8 MMOL/L (8-16); BILIRUBIN,TOTAL 0.4 mg/dL (0.2-1); BLOOD UREA NITROGEN 50 mg/dL (7-18); CALCIUM 7.4 mg/dL (8.5-10.1); CHLORIDE 102 mmol/L (98-107); CO2 24 mmol/L (21-32); CREATININE 2.3 mg/dL (0.55-1.3); GLUCOSE,RANDOM 147 mg/dL (74-106); MAGNESIUM 1.8 mg/dL (1.8-2.4); POTASSIUM 4.5 mmol/L (3.5-5.1); SGOT/AST 8 U/L (15-37); SGPT/ALT 18 U/L (13-61); SODIUM 134 mmol/L (136-145); TOT PROT 6.6 g/dl (6.4-8.2)
--- NOTE | 2018-05-10 08:49 | PN ---
Progress Note, Physician Chief Complaint: TELE: rate controlled AF Echo notable for severe PHTN- RVSP > 60. Occurs in setting acute PNA and hypoxia ---> will need to be repeated when acute pulm process resolved. She feels better, ambulating about room without O2 No further diarrhea BP better last 24 hours History of Present Illness: CXR yesterday improved, resolved congestion - Current Medication List Current Medications: Active Medications Furosemide (Lasix Injection -) 40 mg IVPUSH DAILY [facility] Last Admin: 05/09/18 09:49 Dose: 40 mg Ceftriaxone Sodium 1 gm/ (Dextrose) 50 mls @ 100 mls/hr IVPB DAILY [facility]; Protocol Last Admin: 05/09/18 09:48 Dose: 100 mls/hr Insulin Aspart (Novolog Vial Sliding Scale -) 1 vial SQ ACHS [facility]; Protocol Last Admin: 05/10/18 06:31 Dose: Not Given Insulin Detemir (Levemir Vial) 35 units SQ AM [facility] Last Admin: 05/10/18 06:33 Dose: Not Given Insulin Detemir (Levemir Vial) 12 units SQ HS [facility] Last Admin: 05/09/18 21:05 Dose: Not Given Liraglutide (Victoza -) 1.8 mg SQ DAILY@0700 [facility] Last Admin: 05/10/18 06:31 Dose: 1.8 mg Magnesium Oxide (Mag-Ox -) 400 mg PO BID [facility] Last Admin: 05/09/18 21:02 Dose: 400 mg Metoprolol Succinate (Toprol Xl -) 25 mg PO BID [facility] Last Admin: 05/09/18 21:02 Dose: 25 mg Nystatin (Nystatin Oral Suspension -) 500,000 units PO Q6HPO [facility] Last Admin: 05/10/18 06:30 Dose: 500,000 units Pantoprazole Sodium (Protonix -) 40 mg PO DAILY [facility] Last Admin: 05/09/18 09:49 Dose: 40 mg Rivaroxaban (Xarelto) 15 mg PO DAILY@1800 [facility] Last Admin: 05/09/18 17:04 Dose: 15 mg Rosuvastatin Calcium (Crestor -) 10 mg PO DAILY [facility] Last Admin: 05/09/18 09:49 Dose: 10 mg Sitagliptin Phosphate (Januvia -) 25 mg PO DAILY@0700 [facility] Last Admin: 05/10/18 06:30 Dose: 25 mg - Objective Vital Signs: Vital Signs Temperature 97.3 F L 05/10/18 06:00 Pulse Rate 89 05/10/18 06:00 Respiratory Rate 20 05/10/18 06:00 Blood Pressure 142/68 05/10/18 06:00 O2 Sat by Pulse Oximetry (%) 98 05/09/18 21:00 Constitutional: Yes: No Distress Cardiovascular: Yes: Pulse Irregular Respiratory: Yes: Other (crackles right base) Gastrointestinal: Yes: Soft Edema: Yes Edema: LLE: 1+ (ankle), RLE: 1+ (ankle) Neurological: Yes: Alert ...Motor Strength: WNL Labs: CBC, BMP 05/10/18 06:00 05/10/18 06:00 Microbiology 05/08/18 10:04 Blood - Peripheral Venous Blood Culture - Preliminary NO GROWTH OBTAINED AFTER 24 HOURS, INCUBATION TO CONTINUE FOR 4 DAYS. 05/08/18 09:55 Blood - Peripheral Venous Blood Culture - Preliminary NO GROWTH OBTAINED AFTER 24 HOURS, INCUBATION TO CONTINUE FOR 4 DAYS. Laboratory Tests 05/08/18 05/08/18 05/10/18 10:10 11:26 06:00 WBC Hgb Hct Plt Count Sodium 134 L Potassium 4.5 BUN 50 H Creatinine 2.3 H Influenza A (Rapid) Negative Influenza B (Rapid) Negative Group A Strep Rapid Negative 05/10/18 06:00 WBC 8.7 Hgb 8.9 L Hct 26.0 L Plt Count 161 Sodium Potassium BUN Creatinine Influenza A (Rapid) Influenza B (Rapid) Group A Strep Rapid - ....Imaging Chest X-ray: Image Reviewed (resolving congestive changes) Problem List - Problems (1) Chronic diastolic CHF (congestive heart failure) Code(s): I50.32 - CHRONIC DIASTOLIC (CONGESTIVE) HEART FAILURE (2) Atrial fibrillation Code(s): I48.91 - UNSPECIFIED ATRIAL FIBRILLATION Qualifiers: Atrial fibrillation type: permanent Qualified Code(s): I48.2 - Chronic atrial fibrillation (3) Diabetes Code(s): E11.9 - TYPE 2 DIABETES MELLITUS WITHOUT COMPLICATIONS Qualifiers: Diabetes mellitus type: type 2 Diabetes mellitus complication status: without complication (4) Pneumonia Code(s): J18.9 - PNEUMONIA, UNSPECIFIED ORGANISM Qualifiers: Pneumonia type: due to unspecified organism Laterality: right Lung location: lower lobe of lung Qualified Code(s): J18.1 - Lobar pneumonia, unspecified organism (5) Acute renal failure Code(s): N17.9 - ACUTE KIDNEY FAILURE, UNSPECIFIED Qualifiers: Acute renal failure type: unspecified Qualified Code(s): N17.9 - Acute kidney failure, unspecified Assessment/Plan IMP: Recent diarrheal illness Acute on chronic renal failure Chronic diastolic CHF, acute exacerbation RLL PNA, community acquired Permanent AF DM, type 2 REC: 1. AF overall controlled now, continue Toprol XL 25mg BID and can resume digoxin 0.125mg QOD. -Continue Xarelto, adjusted for GFR 2. CXR improved. Appears essentially euvolemic clinically. Switch to PO Lasix, small bump in BUN/Creat with diuresis. 3. Appreciate Renal and Endocrine f/u. 4. Discussed with adult protective caseworker to obtain home O2. Cont Abx for CAP as per ID and Pulmonary.
[2018-05-10] MEDS ORDERED: DEXTROSE 5%-WATER - 50 ML IVPB ONE (09:15)
[2018-05-10] MEDS ORDERED: cefTRIAXone SODIUM 1 GM VIAL ONE (09:15)
--- NOTE | 2018-05-10 10:45 | PN ---
Progress Note, Physician History of Present Illness: pulmonary alert,oob-chair,comfortable,-resp distress. echo + severe pulmonary htn rsvp > 60mmHg - Current Medication List Current Medications: Active Medications Furosemide (Lasix -) 40 mg PO DAILY [facility] Ceftriaxone Sodium 1 gm/ (Dextrose) 50 mls @ 100 mls/hr IVPB DAILY [facility]; Protocol Last Admin: 05/09/18 09:48 Dose: 100 mls/hr Insulin Aspart (Novolog Vial Sliding Scale -) 1 vial SQ ACHS [facility]; Protocol Last Admin: 05/10/18 06:31 Dose: Not Given Insulin Detemir (Levemir Vial) 35 units SQ AM [facility] Last Admin: 05/10/18 06:33 Dose: Not Given Insulin Detemir (Levemir Vial) 12 units SQ HS [facility] Last Admin: 05/09/18 21:05 Dose: Not Given Liraglutide (Victoza -) 1.8 mg SQ DAILY@0700 [facility] Last Admin: 05/10/18 06:31 Dose: 1.8 mg Magnesium Oxide (Mag-Ox -) 400 mg PO BID [facility] Last Admin: 05/09/18 21:02 Dose: 400 mg Metoprolol Succinate (Toprol Xl -) 25 mg PO BID [facility] Last Admin: 05/09/18 21:02 Dose: 25 mg Nystatin (Nystatin Oral Suspension -) 500,000 units PO Q6HPO [facility] Last Admin: 05/10/18 06:30 Dose: 500,000 units Pantoprazole Sodium (Protonix -) 40 mg PO DAILY [facility] Last Admin: 05/09/18 09:49 Dose: 40 mg Rivaroxaban (Xarelto) 15 mg PO DAILY@1800 [facility] Last Admin: 05/09/18 17:04 Dose: 15 mg Rosuvastatin Calcium (Crestor -) 10 mg PO DAILY [facility] Last Admin: 05/09/18 09:49 Dose: 10 mg Sitagliptin Phosphate (Januvia -) 25 mg PO DAILY@0700 [facility] Last Admin: 05/10/18 06:30 Dose: 25 mg - Objective Vital Signs: Vital Signs Temperature 97.3 F L 05/10/18 06:00 Pulse Rate 89 05/10/18 06:00 Respiratory Rate 20 05/10/18 06:00 Blood Pressure 142/68 05/10/18 06:00 O2 Sat by Pulse Oximetry (%) 98 05/09/18 21:00 Constitutional: Yes: Well Nourished, Calm Eyes: Yes: WNL HENT: Yes: WNL Neck: Yes: WNL Cardiovascular: Yes: Pulse Irregular, S1, S2 Respiratory: Yes: Rales (BIBASILAR CRACKLES) Gastrointestinal: Yes: Normal Bowel Sounds, Soft Extremities: Yes: WNL Edema: Yes Labs: CBC, BMP 05/10/18 06:00 05/10/18 06:00 Assessment/Plan Problem List - Problems (1) Atrial fibrillation Code(s): I48.91 - UNSPECIFIED ATRIAL FIBRILLATION Qualifiers: Atrial fibrillation type: permanent Qualified Code(s): I48.2 - Chronic atrial fibrillation (2) Chronic diastolic CHF (congestive heart failure) Code(s): I50.32 - CHRONIC DIASTOLIC (CONGESTIVE) HEART FAILURE (3) Diabetes Code(s): E11.9 - TYPE 2 DIABETES MELLITUS WITHOUT COMPLICATIONS Qualifiers: Diabetes mellitus type: type 2 Diabetes mellitus complication status: without complication Assessment/Plan Atrial Fibrillation with RVR Acute on Chronic Diastolic Heart Failure r/o Pneumonia CKD HTN DM ANEMIA PULMONARY HTN ? OSAS - antibiotics as per ID - lasix - monitor urine output, creatinine - O2 to keep SpO2 >90% - CXR - rate control - anticoagulation - monitor cbc - daily wt - chest ct no contrast - sleep studies outpatient DR WESTFALL
[2018-05-10] MEDS: metoPROLOL SUCCINATE 25 MG TAB.SR.24H (FP) PO SCH ×2 (11:12→21:25)
[2018-05-10] MEDS: CEFTRIAXONE 1 GM in DEXTROSE 5%-WATER - 50 ML IVPB SCH (11:13)
[2018-05-10] MEDS: MAGNESIUM OXIDE 400 MG TABLET (FP) PO SCH ×2 (11:13→21:25)
[2018-05-10] MEDS: FUROSEMIDE 40 MG TABLET (FP) PO SCH (11:13)
[2018-05-10] MEDS: PANTOPRAZOLE 40 MG TABLET (FP) PO SCH (11:13)
[2018-05-10] MEDS: ROSUVASTATIN CA 10 MG TABLET (FP) PO SCH (11:13)
--- NOTE | 2018-05-10 13:30 | PN ---
Progress Note, Physician History of Present Illness: Pt seen and examined at bedside. She is awake and alert. She feels that her breathing is improved today. She feels lower ext edema is improved as well. She denies diarrhea. She just went down for a ct scan. - Current Medication List Current Medications: Active Medications Furosemide (Lasix -) 40 mg PO DAILY [facility] Last Admin: 05/10/18 11:13 Dose: 40 mg Ceftriaxone Sodium 1 gm/ (Dextrose) 50 mls @ 100 mls/hr IVPB DAILY [facility]; Protocol Last Admin: 05/10/18 11:13 Dose: 100 mls/hr Insulin Aspart (Novolog Vial Sliding Scale -) 1 vial SQ ACHS [facility]; Protocol Last Admin: 05/10/18 12:07 Dose: 9 units Insulin Detemir (Levemir Vial) 35 units SQ AM [facility] Last Admin: 05/10/18 06:33 Dose: Not Given Insulin Detemir (Levemir Vial) 12 units SQ HS [facility] Last Admin: 05/09/18 21:05 Dose: Not Given Liraglutide (Victoza -) 1.8 mg SQ DAILY@0700 [facility] Last Admin: 05/10/18 06:31 Dose: 1.8 mg Magnesium Oxide (Mag-Ox -) 400 mg PO BID [facility] Last Admin: 05/10/18 11:13 Dose: 400 mg Metoprolol Succinate (Toprol Xl -) 25 mg PO BID [facility] Last Admin: 05/10/18 11:12 Dose: 25 mg Nystatin (Nystatin Oral Suspension -) 500,000 units PO Q6HPO [facility] Last Admin: 05/10/18 12:56 Dose: Not Given Pantoprazole Sodium (Protonix -) 40 mg PO DAILY [facility] Last Admin: 05/10/18 11:13 Dose: 40 mg Rivaroxaban (Xarelto) 15 mg PO DAILY@1800 [facility] Last Admin: 05/09/18 17:04 Dose: 15 mg Rosuvastatin Calcium (Crestor -) 10 mg PO DAILY [facility] Last Admin: 05/10/18 11:13 Dose: 10 mg Sitagliptin Phosphate (Januvia -) 25 mg PO DAILY@0700 [facility] Last Admin: 05/10/18 06:30 Dose: 25 mg - Objective Vital Signs: Vital Signs Temperature 98.3 F 05/10/18 11:20 Pulse Rate 105 H 05/10/18 11:35 Respiratory Rate 20 05/10/18 11:20 Blood Pressure 148/78 05/10/18 11:20 O2 Sat by Pulse Oximetry (%) 92 L 05/10/18 11:35 Constitutional: Yes: Calm Eyes: Yes: Conjunctiva Clear HENT: Yes: Atraumatic Neck: Yes: Supple Cardiovascular: Yes: S1, S2 Respiratory: Yes: On Nasal O2, Rhonchi Gastrointestinal: Yes: Soft Genitourinary: Yes: WNL Edema: Yes Edema: LLE: 1+, RLE: 1+ Neurological: Yes: Oriented Psychiatric: Yes: Oriented Labs: CBC, BMP 05/10/18 06:00 05/10/18 06:00 Problem List - Problems (1) CHF (congestive heart failure) Code(s): I50.9 - HEART FAILURE, UNSPECIFIED (2) HODAN (acute kidney injury) Code(s): N17.9 - ACUTE KIDNEY FAILURE, UNSPECIFIED (3) Atrial fibrillation Code(s): I48.91 - UNSPECIFIED ATRIAL FIBRILLATION Qualifiers: Atrial fibrillation type: permanent Qualified Code(s): I48.2 - Chronic atrial fibrillation Assessment/Plan Current Medications Generic Name Dose Route Start Last Admin Trade Name Freq PRN Reason Stop Dose Admin Furosemide 40 mg 05/10/18 10:00 05/10/18 11:13 Lasix - PO 40 mg DAILY [facility] Administration Ceftriaxone Sodium 1 gm/ 50 mls @ 100 mls/hr 05/09/18 10:00 05/10/18 11:13 Dextrose IVPB 100 mls/hr DAILY [facility] Administration Protocol Insulin Aspart 1 vial 05/09/18 16:30 05/10/18 12:07 Novolog Vial Sliding Scale - SQ 9 units ACHS [facility] Administration Protocol Insulin Detemir 35 units 05/10/18 07:00 05/10/18 06:33 Levemir Vial SQ Not Given AM [facility] Insulin Detemir 12 units 05/09/18 22:00 05/09/18 21:05 Levemir Vial SQ Not Given HS [facility] Liraglutide 1.8 mg 05/09/18 07:00 05/10/18 06:31 Victoza - SQ 1.8 mg DAILY@0700 [facility] Administration Magnesium Oxide 400 mg 05/08/18 11:45 05/10/18 11:13 Mag-Ox - PO 400 mg BID [facility] Administration Metoprolol Succinate 25 mg 05/08/18 10:00 05/10/18 11:12 Toprol Xl - PO 25 mg BID [facility] Administration Nystatin 500,000 units 05/08/18 18:00 05/10/18 12:56 Nystatin Oral Suspension - PO Not Given Q6HPO [facility] Pantoprazole Sodium 40 mg 05/08/18 16:30 05/10/18 11:13 Protonix - PO 40 mg DAILY [facility] Administration Rivaroxaban 15 mg 05/09/18 18:00 05/09/18 17:04 Xarelto PO 15 mg DAILY@1800 [facility] Administration Rosuvastatin Calcium 10 mg 05/08/18 19:30 05/10/18 11:13 Crestor - PO 10 mg DAILY [facility] Administration Sitagliptin Phosphate 25 mg 05/09/18 07:00 05/10/18 06:30 Januvia - PO 25 mg DAILY@0700 [facility] Administration Microbiology 05/08/18 10:04 Blood - Peripheral Venous Blood Culture - Preliminary NO GROWTH OBTAINED AFTER 48 HOURS, INCUBATION TO CONTINUE FOR 3 DAYS. 05/08/18 09:55 Blood - Peripheral Venous Blood Culture - Preliminary NO GROWTH OBTAINED AFTER 48 HOURS, INCUBATION TO CONTINUE FOR 3 DAYS. Impression 1. HODNA 2. CKD 3. CHF 4. a-fib 5. diarrhea - resolved 6. a-fib 7. DM 8. HTN 9. mild dementia 10. hyperlipiemia 11. fluid overload 12. elevated pulm art pressures on ct Plan - follow ct report - change lasix to po 40 mg starting tomorrow - keep arb on hold - abx per ID, wbc improved - volume status improving - monitor renal function - discussed with family Dr Mcgee
--- NOTE | 2018-05-10 15:39 | PN ---
Progress Note (short form) - Note Progress Note: less cough less sore throat oob in chair ambulated in the halls Vital Signs Period Temp Pulse Resp BP Sys/Luna Pulse Ox Last 24 Hr 97.3 F-98.3 F 89-105 20-98 119-148/52-78 92-98 cor-rrr lungs clear, decreased bs at bases abd soft,nt ext no edema CBC, BMP 05/10/18 06:00 05/10/18 06:00 Microbiology 05/08/18 10:04 Blood - Peripheral Venous Blood Culture - Preliminary NO GROWTH OBTAINED AFTER 48 HOURS, INCUBATION TO CONTINUE FOR 3 DAYS. 05/08/18 09:55 Blood - Peripheral Venous Blood Culture - Preliminary NO GROWTH OBTAINED AFTER 48 HOURS, INCUBATION TO CONTINUE FOR 3 DAYS. 05/08/18 11:40 Throat Throat Culture - Final NO BETA HEMOLYTIC STREPTOCOCCI ISOLATED 05/08/18 09:15 Urine For Antigen Detection Legionella Antigen - Preliminary IMP/RECCD leukocytosis-resolving f/u chest ct influenza screen negative legionella antigen negative wbc now normal day #3 rocephin can switch to po ceftin in am to complete 7 days chf ckd Problem List - Problems (1) Leukocytosis Code(s): D72.829 - ELEVATED WHITE BLOOD CELL COUNT, UNSPECIFIED (2) Pneumonia Code(s): J18.9 - PNEUMONIA, UNSPECIFIED ORGANISM Qualifiers: Pneumonia type: due to unspecified organism Laterality: right Lung location: lower lobe of lung Qualified Code(s): J18.1 - Lobar pneumonia, unspecified organism (3) CHF (congestive heart failure) Code(s): I50.9 - HEART FAILURE, UNSPECIFIED
[2018-05-10] MEDS: RIVAROXABAN 15 MG TABLET PO SCH (17:19)
[2018-05-10 19:16] LABS: HEMATOCRIT 27.6 % (32.4-45.2); HEMOGLOBIN 9.4 GM/dL (10.7-15.3); MEAN CELL VOLUME 82.2 fl (80-96); PLATELET COUNT 185 K/MM3 (134-434); RBC 3.37 M/mm3 (3.60-5.2); RDW 17.4 % (11.6-15.6); WHITE BLOOD COUNT 9.5 K/mm3 (4.0-10.0)
[2018-05-10] MEDS: INSULIN (LEVEMIR) 100 UNITS/ML UNITS SQ SCH (21:28)
--- NOTE | 2018-05-11 00:22 | PN ---
Progress Note, Physician History of Present Illness: Pt hypoxic w/ ambulation Pt seen and examined on 05/10/18 however note is being entered now - Current Medication List Current Medications: Active Medications Furosemide (Lasix -) 40 mg PO DAILY [facility] Last Admin: 05/10/18 11:13 Dose: 40 mg Ceftriaxone Sodium 1 gm/ (Dextrose) 50 mls @ 100 mls/hr IVPB DAILY [facility]; Protocol Last Admin: 05/10/18 11:13 Dose: 100 mls/hr Insulin Aspart (Novolog Vial Sliding Scale -) 1 vial SQ ACHS [facility]; Protocol Insulin Detemir (Levemir Vial) 12 units SQ HS [facility] Last Admin: 05/10/18 21:28 Dose: Not Given Insulin Detemir (Levemir Vial) 40 units SQ AM [facility] Magnesium Oxide (Mag-Ox -) 400 mg PO BID [facility] Last Admin: 05/10/18 21:25 Dose: 400 mg Metoprolol Succinate (Toprol Xl -) 25 mg PO BID [facility] Last Admin: 05/10/18 21:25 Dose: 25 mg Nystatin (Nystatin Oral Suspension -) 500,000 units PO Q6HPO [facility] Last Admin: 05/10/18 23:28 Dose: Not Given Pantoprazole Sodium (Protonix -) 40 mg PO DAILY [facility] Last Admin: 05/10/18 11:13 Dose: 40 mg Rivaroxaban (Xarelto) 15 mg PO DAILY@1800 [facility] Last Admin: 05/10/18 17:19 Dose: 15 mg Rosuvastatin Calcium (Crestor -) 10 mg PO DAILY [facility] Last Admin: 05/10/18 11:13 Dose: 10 mg - Objective Vital Signs: Vital Signs Temperature 97.5 F L 05/10/18 20:51 Pulse Rate 85 05/10/18 20:51 Respiratory Rate 20 05/10/18 20:51 Blood Pressure 139/77 05/10/18 20:51 O2 Sat by Pulse Oximetry (%) 96 05/10/18 20:51 HENT: Yes: WNL Neck: Yes: WNL Cardiovascular: Yes: Pulse Irregular Respiratory: Yes: Diminished Gastrointestinal: Yes: WNL, Normal Bowel Sounds, Soft Labs: CBC, BMP 05/10/18 19:12 05/10/18 06:00 Problem List - Problems (1) Acute on chronic diastolic (congestive) heart failure Assessment/Plan: Pt now on po lasix Monitor electrolytes Code(s): I50.33 - ACUTE ON CHRONIC DIASTOLIC (CONGESTIVE) HEART FAILURE (2) Leukocytosis Assessment/Plan: Cont IV ceftriaxone/zithro WBC decreased CT scan chest showed multilobar pneumonia and small pleural effusion Cont IV atnibxs Possible change to PO antibxs in am Code(s): D72.829 - ELEVATED WHITE BLOOD CELL COUNT, UNSPECIFIED (3) Acute on chronic renal failure Assessment/Plan: ?Due to dehydration secondary to diarrhea Slight increase in creatinine Encourage PO intake Hold ARB Code(s): N17.9 - ACUTE KIDNEY FAILURE, UNSPECIFIED; N18.9 - CHRONIC KIDNEY DISEASE, UNSPECIFIED (4) Afib Assessment/Plan: Heart rate better controlled Cont BB Start dig as outpt Cont xarelto Code(s): I48.91 - UNSPECIFIED ATRIAL FIBRILLATION (5) Diabetes Assessment/Plan: Uncontrolled diabetes Cont levemir/sliding scale w/ coverage Code(s): E11.9 - TYPE 2 DIABETES MELLITUS WITHOUT COMPLICATIONS Qualifiers: Diabetes mellitus type: type 2 Diabetes mellitus complication status: without complication (6) Diarrhea Assessment/Plan: Resolved Code(s): R19.7 - DIARRHEA, UNSPECIFIED (7) Generalized weakness Assessment/Plan: Due to dehydration Code(s): R53.1 - WEAKNESS (8) Anemia Assessment/Plan: Multifactorial Monitor H/H Code(s): D64.9 - ANEMIA, UNSPECIFIED
[2018-05-11] MEDS: NYSTATIN 500,000 UNITS/5 ML SUSPENSION PO SCH ×2 (06:13→12:00)
[2018-05-11] MEDS: INSULIN SLIDING SCALE (NOVOLOG) 1 VIAL SQ SCH ×2 (06:13→11:59)
[2018-05-11] MEDS ORDERED: INSULIN (LEVEMIR) 100 UNITS/ML UNITS SQ SCH (07:00)
[2018-05-11 07:13] LABS: BASO % 0.7 % (0-2.0); EOS % 2.2 % (0-4.5); HEMATOCRIT 26.8 % (32.4-45.2); HEMOGLOBIN 9.1 GM/dL (10.7-15.3); LYMPH % 16.1 % (8-40); MCH 27.4 pg (25.7-33.7); MCHC 34.1 g/dl (32.0-36.0); MEAN CELL VOLUME 80.5 fl (80-96); MEAN PLT VOLUME 8.9 fl (7.5-11.1); MONO % 5.8 % (3.8-10.2); NEUT % 75.2 % (42.8-82.8); PLATELET COUNT 189 K/MM3 (134-434); RBC 3.33 M/mm3 (3.60-5.2); RDW 17.4 % (11.6-15.6); WHITE BLOOD COUNT 9.3 K/mm3 (4.0-10.0)
[2018-05-11 08:09] LABS: ALBUMIN 2.4 g/dl (3.4-5.0); ALK PHOS 99 U/L (45-117); ANION GAP 8 MMOL/L (8-16); BILIRUBIN,TOTAL 0.3 mg/dL (0.2-1); BLOOD UREA NITROGEN 59 mg/dL (7-18); CALCIUM 7.4 mg/dL (8.5-10.1); CHLORIDE 100 mmol/L (98-107); CO2 24 mmol/L (21-32); CREATININE 2.3 mg/dL (0.55-1.3); GLUCOSE,RANDOM 200 mg/dL (74-106); POTASSIUM 4.8 mmol/L (3.5-5.1); SGOT/AST 12 U/L (15-37); SGPT/ALT 26 U/L (13-61); SODIUM 132 mmol/L (136-145); TOT PROT 6.8 g/dl (6.4-8.2)
--- NOTE | 2018-05-11 09:05 | PN ---
Progress Note, Physician Chief Complaint: TELEMETRY: reviewed. Controlled AF Rare single PVCs. Rare Couplets Chest CT reviewed. There are b/l effusions R> L but also two areas of more focal consolidation in the Right lung which appear to be c/w infiltrates. BP is stable. H/H stable. History of Present Illness: Did not sleep well - Current Medication List Current Medications: Active Medications Furosemide (Lasix -) 40 mg PO DAILY [facility] Last Admin: 05/10/18 11:13 Dose: 40 mg Ceftriaxone Sodium 1 gm/ (Dextrose) 50 mls @ 100 mls/hr IVPB DAILY [facility]; Protocol Last Admin: 05/10/18 11:13 Dose: 100 mls/hr Insulin Aspart (Novolog Vial Sliding Scale -) 1 vial SQ ACHS [facility]; Protocol Last Admin: 05/11/18 06:13 Dose: Not Given Insulin Detemir (Levemir Vial) 12 units SQ HS [facility] Last Admin: 05/10/18 21:28 Dose: Not Given Insulin Detemir (Levemir Vial) 40 units SQ AM [facility] Last Admin: 05/11/18 06:13 Dose: Not Given Magnesium Oxide (Mag-Ox -) 400 mg PO BID [facility] Last Admin: 05/10/18 21:25 Dose: 400 mg Metoprolol Succinate (Toprol Xl -) 25 mg PO BID [facility] Last Admin: 05/10/18 21:25 Dose: 25 mg Nystatin (Nystatin Oral Suspension -) 500,000 units PO Q6HPO [facility] Last Admin: 05/11/18 06:13 Dose: Not Given Pantoprazole Sodium (Protonix -) 40 mg PO DAILY [facility] Last Admin: 05/10/18 11:13 Dose: 40 mg Rivaroxaban (Xarelto) 15 mg PO DAILY@1800 [facility] Last Admin: 05/10/18 17:19 Dose: 15 mg Rosuvastatin Calcium (Crestor -) 10 mg PO DAILY [facility] Last Admin: 05/10/18 11:13 Dose: 10 mg - Objective Vital Signs: Vital Signs Temperature 97.4 F L 05/11/18 06:00 Pulse Rate 91 H 05/11/18 06:00 Respiratory Rate 20 05/11/18 06:00 Blood Pressure 141/67 05/11/18 06:00 O2 Sat by Pulse Oximetry (%) 96 05/10/18 20:51 Constitutional: Yes: No Distress, Calm Cardiovascular: Yes: Pulse Irregular Respiratory: Yes: Other (decreased basilar breath sounds.) Gastrointestinal: Yes: Soft, Abdomen, Obese Edema: Yes Edema: LLE: 1+, RLE: 1+ Neurological: Yes: Alert Labs: CBC, BMP 05/11/18 06:30 05/11/18 06:30 Laboratory Tests 05/11/18 05/11/18 06:30 06:30 WBC 9.3 Hgb 9.1 L Hct 26.8 L Plt Count 189 Sodium 132 L Potassium 4.8 BUN 59 H Creatinine 2.3 H ALT 26 Alkaline Phosphatase 99 - ....Imaging Cat Scan: Image Reviewed EKG: Image Reviewed Problem List - Problems (1) Chronic diastolic CHF (congestive heart failure) Code(s): I50.32 - CHRONIC DIASTOLIC (CONGESTIVE) HEART FAILURE (2) Atrial fibrillation Code(s): I48.91 - UNSPECIFIED ATRIAL FIBRILLATION Qualifiers: Atrial fibrillation type: permanent Qualified Code(s): I48.2 - Chronic atrial fibrillation (3) Diabetes Code(s): E11.9 - TYPE 2 DIABETES MELLITUS WITHOUT COMPLICATIONS Qualifiers: Diabetes mellitus type: type 2 Diabetes mellitus complication status: without complication (4) Pneumonia Code(s): J18.9 - PNEUMONIA, UNSPECIFIED ORGANISM Qualifiers: Pneumonia type: due to unspecified organism Laterality: right Lung location: lower lobe of lung Qualified Code(s): J18.1 - Lobar pneumonia, unspecified organism (5) Acute renal failure Code(s): N17.9 - ACUTE KIDNEY FAILURE, UNSPECIFIED Qualifiers: Acute renal failure type: unspecified Qualified Code(s): N17.9 - Acute kidney failure, unspecified Assessment/Plan IMP: 1. Multi focal PNA, community acquired 2. Chronic diastolic CHF, acute exacerbation secondary to infection 3. Acute on chronic renal failure 4. Permanent AF 5. DM, type 2 6. Anemia 7. PHTN REC: 1. AF overall controlled now, continue Toprol XL 25mg BID and can resume digoxin 0.125mg QOD. -Continue Xarelto, adjusted for GFR 2. Chest CT shows several areas of focal consolidation Right lung. Continue Abx as per ID. 3. Acute CHF overall improved from admission after several days of IV Lasix. Will switch to PO today. There are small bilateral effusions R> L which which should resolve with Lasix. 4. May need home O2, d/w case packer. Will need pre/post exercise O2 test again prior to discharge. 5. Anemia with stable H/H, no signs active bleeding. Follow counts and reserve transfusion for Hb < 8 6. PHTN not seen prior echocardiograms due to poor TR envelope. Now noted with RVSP 60s. This may be chronic and secondary to diastolic CHF and LADONNA, and was not picked up because the TR envelope was not well defined. If acute, it may be explained by her active PNA, acute CHF leading to relative hypoxia which can acutely elevate the PA pressure. Doubt Pulmonary embolism as she is chronically anticoagulated. Can repeat the echo as outpatient when acute PNA and CHF resolved.
[2018-05-11] MEDS ORDERED: PT OWN MED DRAWER 7, Y5N ONE (10:07)
[2018-05-11] MEDS ORDERED: cefTRIAXone SODIUM 1 GM VIAL ONE (10:07)
[2018-05-11] MEDS ORDERED: DEXTROSE 5%-WATER - 50 ML IVPB ONE (10:07)
[2018-05-11] MEDS: ROSUVASTATIN CA 10 MG TABLET (FP) PO SCH (10:21)
[2018-05-11] MEDS: PANTOPRAZOLE 40 MG TABLET (FP) PO SCH (10:21)
[2018-05-11] MEDS: FUROSEMIDE 40 MG TABLET (FP) PO SCH (10:21)
[2018-05-11] MEDS: CEFTRIAXONE 1 GM in DEXTROSE 5%-WATER - 50 ML IVPB SCH (10:21)
[2018-05-11] MEDS: metoPROLOL SUCCINATE 25 MG TAB.SR.24H (FP) PO SCH (10:21)
[2018-05-11 10:47] VITALS: BP 135/80; PULSE 85; TEMP 7.4
[2018-05-11] MEDS: MAGNESIUM OXIDE 400 MG TABLET (FP) PO SCH (11:39)
== END 2018-05-11 13:20 | disposition home or self-care (01) | DRG 291 ==
LOC: JER 08:52 → JERBED 11:37 → J4S 20:15
PROVIDERS: ADMIT Internal Medicine; ATTEND Internal Medicine
DX: I13.0 Hypertensive heart and chronic kidney disease with heart failure and stage 1 through stage 4 chronic kidney disease, or unspecified chronic kidney disease (principal); J18.1 Lobar pneumonia, unspecified organism; I50.33 Acute on chronic diastolic (congestive) heart failure; N17.9 Acute kidney failure, unspecified; B37.0 Candidal stomatitis; E87.1 Hypo-osmolality and hyponatremia; I48.2 Chronic atrial fibrillation; D72.829 Elevated white blood cell count, unspecified; D64.9 Anemia, unspecified; I27.20 Pulmonary hypertension, unspecified; N18.9 Chronic kidney disease, unspecified; E11.22 Type 2 diabetes mellitus with diabetic chronic kidney disease; E11.21 Type 2 diabetes mellitus with diabetic nephropathy; R19.7 Diarrhea, unspecified; E86.0 Dehydration; R53.1 Weakness
CPT/HCPCS: 36415; 71045-TC-FY; 71250-TC; 80048; 80053; 80162; 81003; 81015; 82550; 82962; 83036; 83605; 83735; 83880; 84484; 85025; 85027; 86850; 86900; 86901; 86922; 87040; 87070; 87804; 87880; 87899; 93005; 93010; 93306-TC; 94010; 94761; 99284-25